=== PATIENT | male | born 1940 | race Caucasian/White ===

== ENCOUNTER → 2017-06-14 | Outpatient (CLI) | payer OTHER, MEDICAID ==
[~2017-06-14] MED LIST: CATHETER FLUSH 10 ML SYR IV PRN; IOHEXOL 350 MG/ML 100 ML (OMNIPAQUE 350) VIAL IV ONE; NS 100 ML (IVPB) BAG IV ONE
--- NOTE | 2017-06-14 16:11 | Diagnostic Imaging Report ---
PROCEDURE: CT chest with contrast only. TECHNIQUE: Multiple contiguous axial images were obtained through the chest after administration of intravenous contrast. INDICATION: Pancreatic cancer. 75 mL of an Omnipaque 350 is administered intravenously. FINDINGS: There are mild to moderate emphysema changes, more prominent in the upper lobes. No significant consolidation, mass or suspicious nodule is seen. Nonspecific groundglass opacity in the lingula is probably atelectasis related. No pleural or pericardial effusion. The heart size is normal. The thoracic aorta is normal in caliber. There is no mediastinal mass or lymphadenopathy. No hilar or axillary lymphadenopathy is seen. Sections in the upper abdomen demonstrate a CBD stent and incompletely visualized mass in the pancreatic head and uncinate process region with dilatation of the pancreatic duct. The mass approximate measurements are 3.6 x 2 cm. There is dilatation of the bile ducts in the liver with pneumobilia. The osseous structures demonstrate degenerative changes and vacuum phenomenon in the mid to lower thoracic spine. IMPRESSION: 1. Emphysema. 2. Pancreatic head and uncinate process mass incompletely visualized with CBD stent in place. There is dilatation of the bile ducts and of the pancreatic duct. 3. No evidence of metastasis in the chest. Dictated by: Dictated on workstation # [id number]
== END ==
LOC: RAD 11:50
PROVIDERS: ATTEND Internal Medicine Hematology & Oncology
DX: J43.9 Emphysema, unspecified (principal); K83.8 Other specified diseases of biliary tract; K86.89 Other specified diseases of pancreas; C25.9 Malignant neoplasm of pancreas, unspecified; Z96.89 Presence of other specified functional implants
CPT/HCPCS: 71260

== ENCOUNTER 2017-06-22 09:30 | Outpatient (CLI) | payer OTHER, MEDICAID ==
[~2017-06-22] VITALS: Ht 172.7 cm; Wt 67.1 kg
[2017-06-22] MEDS ORDERED: BUDE10.2 IH (09:33)
[2017-06-22] MEDS ORDERED: RT-ALBUINH IH (09:33)
[2017-06-22] MEDS ORDERED: ALBU2.5V4 IH (09:33)
[2017-06-22] MEDS ORDERED: MULT-1056 PO (09:33)
[2017-06-23] MEDS ORDERED: ACHD5005 PO (12:56)
== END 2017-06-22 09:48 ==
LOC: PREOP 09:30
PROVIDERS: ATTEND Surgery
DX: Z01.818 Encounter for other preprocedural examination (principal); C25.9 Malignant neoplasm of pancreas, unspecified

== ENCOUNTER 2017-06-23 09:59 | Day surgery (SDC) | payer OTHER, MEDICAID ==
[~2017-06-23] VITALS: Ht 172.7 cm; Wt 67.1 kg
[~2017-06-23 09:59] MED LIST changes: +ALBU2.5V4 IH; +BUDE10.2 IH; -CATHETER FLUSH 10 ML SYR IV PRN; -IOHEXOL 350 MG/ML 100 ML (OMNIPAQUE 350) VIAL IV ONE; +MULT-1056 PO; -NS 100 ML (IVPB) BAG IV ONE; +RT-ALBUINH IH
--- OUTSIDE RECORDS SUMMARY | 2017-06-23 10:06 | XMS REPORT ---
Author Author MOY ZAYAS [facility] Address [address] [facility] [address] [place], [place] [id number] Care Team Providers Care Database Programmer Analyst Name Role Phone MOY ZAYAS PCP Unavailable Allergies and Adverse Reactions Name Reaction Notes NO KNOWN DRUG ALLERGIES Plan of Treatment Not available. Medications Active Name Start Date Estimated Completion Date SIG Comments ProAir HFA 90 mcg/actuation inhalation HFA aerosol inhaler 03/01/2014 inhale 2 puffs by inhalation route every 6 hours albuterol sulfate 2.5 mg /3 mL (0.083 %) inhalation solution for nebulization 03/29/2014 USE 1 VIAL IN MACHINE EVERY 4 HOURS -LIMIT OF 6 DOSES PER 24 HRS. Symbicort 160-4.5 mcg/actuation inhalation HFA aerosol inhaler 07/02/2014 USE 2 PUFFS TWICE A DAY -THANK YOU. ProAir HFA 90 mcg/actuation inhalation HFA aerosol inhaler 03/05/2015 USE 2 PUFFS EVERY 4 HOURS NEEDED FOR WHEEZING -THANK YOU. albuterol sulfate 2.5 mg /3 mL (0.083 %) inhalation solution for nebulization 04/29/2015 USE 1 VIAL IN MACHINE EVERY 4 HOURS -LIMIT OF 6 DOSES PER 24 HRS. ProAir HFA 90 mcg/actuation inhalation HFA aerosol inhaler 06/30/2015 USE 2 PUFFS EVERY 4 HOURS NEEDED FOR WHEEZING -THANK YOU. albuterol sulfate 2.5 mg /3 mL (0.083 %) inhalation solution for nebulization 08/28/2015 USE 1 VIAL IN MACHINE EVERY 4 HOURS -LIMIT OF 6 DOSES PER 24 HRS. Name Start Date Expiration Date SIG Comments triamcinolone acetonide 0.1 % topical cream 08/08/2009 12/06/2009 apply a thin film to the affected skin areas by topical route 2 times per day for 60 days prednisone 20 mg oral tablet 12/03/2009 12/14/2009 4 daily x 2 days, 3 x 3 days , 2x3 days, 1x3 days ALBUTEROL 0.083% NEB 0.083 milliliter 03/04/2010 05/03/2010 1Q6H FOR 60 DAYS - USE ONE VIAL IN NEBULIZER EVERY 6 HOURS FOR 60 DAYS Cipro 500 mg oral tablet 11/18/2010 12/03/2010 take 1 tablet (500 mg) by oral route 2 times per day for 15 days albuterol sulfate 2.5 mg /3 mL (0.083 %) inhalation solution for nebulization 08/03/2011 08/23/2011 USE 1 VIAL IN MACHINE EVERY 4 HOURS -LIMIT OF 6 DOSES PER 24 HRS. albuterol sulfate 2.5 mg /3 mL (0.083 %) inhalation solution for nebulization 04/06/2012 04/26/2012 USE 1 VIAL IN MACHINE EVERY 4 HOURS -LIMIT OF 6 DOSES PER 24 HRS. Cipro 500 mg oral tablet 04/12/2012 04/27/2012 take 1 tablet (500 mg) by oral route 2 times per day for 15 days prednisone 20 mg oral tablet 04/12/2012 04/20/2012 4X2 days 3X2 days 2X2 days 1X2 Days Phenergan-Codeine 6.25-10 mg/5 mL oral syrup 11/08/2012 take 5 milliliters by oral route 4 times a day Cipro 500 mg oral tablet 11/08/2012 take 1 tablet (500 mg) by oral route 2 times per day Vermox Oral po 100mg 04/18/2013 Take 1 tablet by oral route as directed Levaquin 500 mg oral tablet 09/20/2013 09/30/2013 take 1 tablet (500 mg) by oral route once daily for 10 days Symbicort 160-4.5 mcg/actuation inhalation HFA aerosol inhaler 12/25/20132013 USE 2 PUFFS TWICE A DAY -THANK YOU. Valtrex 1 gram oral tablet 03/07/2014 03/14/2014 take 1 tablet (1,000 mg) by oral route 3 times per day for 7 days Cipro 500 mg oral tablet 04/08/2015 04/18/2015 take 1 tablet (500 mg) by oral route 2 times per day for 10 days prednisone 20 mg oral tablet 04/08/2015 04/16/2015 4x2 days 3x2 days 2x2 days 1x2 days Discontinued Name Start Date Discontinued Date SIG Comments Phenergan-Codeine 6.25-10 mg/5 mL oral syrup 11/18/2010 04/12/2012 take 5 milliliters by oral route 4 times a day Vermox 100mg tabs 04/18/2013 04/18/2013 one po now repeat in 2 weeks and 4 weeks deleted Problem List Description Status Onset breathing problems Active Chronic Obstructive Pulmonary Disease Active Squamous cell skin cancer Active Penis June 28 Pulmonary emphysema, unspecified emphysema type Active 08/30/2015 Hypoxemia requiring supplemental oxygen Active 08/30/2015 Vital Signs Date Time BP-Sys(mm[Hg] BP-Kadi(mm[Hg]) HR(bpm) RR(rpm) Temp WT HT HC BMI BSA BMI Percentile O2 Sat(%) 08/29/2015 11:39:00 AM 110 mmHg 65 mmHg 54 bpm 16 rpm 98.2 F 173 lbs 70 in 24.82 kg/m2 1.97 m2 93 % 08/18/2015 10:35:00 AM 128 mmHg 65 mmHg 90 bpm 18 rpm 98.7 F 174 lbs 71 in 24.2678 kg/m 1.9884 m 86 % 04/08/2015 10:55:00 AM 110 mmHg 70 mmHg 60 bpm 16 rpm 98.4 F 172 lbs 71 in 23.99 kg/m2 1.98 m2 96 % 03/07/2014 10:49:00 AM 150 mmHg 72 mmHg 76 bpm 22 rpm 96.3 F 173 lbs 71 in 24.1284 kg/m 1.9827 m 98 % 09/20/2013 10:42:00 AM 134 mmHg 74 mmHg 104 bpm 24 rpm 99.9 F 177 lbs 71 in 24.69 kg/m2 2.01 m2 85 % 11/06/2012 2:59:00 PM 130 mmHg 64 mmHg 70 bpm 20 rpm 96.1 F 175 lbs 71 in 24.4073 kg/m 1.9941 m 95 % 04/12/2012 10:21:00 AM 130 mmHg 68 mmHg 76 bpm 20 rpm 97.1 F 161 lbs 71 in 22.45 kg/m2 1.91 m2 89 % 11/10/2011 9:28:00 AM 112 mmHg 68 mmHg 60 bpm 167 lbs 71 in 23.2915 kg/m 1.948 m 88 % 10/18/2011 1:31:00 PM 116 mmHg 66 mmHg 68 bpm 157 lbs 71 in 21.90 kg/m2 1.89 m2 93 % 11/18/2010 10:15:00 AM 116 mmHg 64 mmHg 55 bpm 157 lbs 90 % 08/13/2010 9:40:00 AM 118 mmHg 64 mmHg 50 bpm 157 lbs 95 % 04/29/2010 10:10:00 AM 112 mmHg 64 mmHg 54 bpm 148.375 lbs 94 % 12/02/2009 9:53:00 AM 112 mmHg 74 mmHg 62 bpm 155 lbs 92 % 09/23/2009 10:37:00 AM 118 mmHg 70 mmHg 58 bpm 155 lbs 92 % 07/08/2009 9:05:00 AM 112 mmHg 62 mmHg 70 bpm 147 lbs 85 % Social History Name Description Comments Tobacco Former smoker denies alcohol use 8th grade Quit Alcohol Active but no formal exercise Uses seatbelts History of Procedures Date Ordered Description Order Status 04/12/2012 12:00 AM THER/PROPH/DIAG INJ SC/IM Reviewed 04/12/2012 12:00 AM Decadron, Per 1 Mg [facility]# [id number] Reviewed 04/12/2012 12:00 AM Depo-Medrol, Per 80 Mg [facility]#9790-8504-46 Reviewed 04/12/2012 12:00 AM ROUTINE VENIPUNCTURE Reviewed 04/12/2012 12:00 AM COMPLETE CBC W/AUTO DIFF WBC Reviewed 04/12/2012 12:00 AM COMPREHEN METABOLIC PANEL Reviewed 04/12/2012 12:00 AM LIPID PANEL Reviewed 04/12/2012 12:00 AM ASSAY OF PSA TOTAL Reviewed 09/23/2009 12:00 AM Decadron Inj.6mg-([facility]) [facility] #[id number] Reviewed 09/23/2009 12:00 AM Depo-Medrol 120 Mg Im/[facility] [id number] Reviewed 11/06/2012 12:00 AM THER/PROPH/DIAG INJ SC/IM Reviewed 11/06/2012 12:00 AM Decadron, Per 1 Mg [facility]# [address]-81 Reviewed 11/06/2012 12:00 AM Depo-Medrol, Per 80 Mg [facility]#0629-3257-40 Reviewed 09/20/2013 12:00 AM THER/PROPH/DIAG INJ SC/IM Reviewed 09/20/2013 12:00 AM Decadron, Per 12 Mg [facility]# [address]-26 Reviewed 09/20/2013 12:00 AM Rocephin 1 gram [facility]#8962-2593-78 Reviewed 04/29/2010 12:00 AM THER/PROPH/DIAG INJ SC/IM Reviewed 04/29/2010 12:00 AM Decadron Inj.6mg-([facility]) [facility] #[id number] Reviewed 04/29/2010 12:00 AM Depo-Medrol 120 Mg Im/[facility] [id number] Reviewed 07/08/2009 12:00 AM Decadron Inj.1mg-([facility]ed With [facility]) [facility] #[id number] Reviewed 07/08/2009 12:00 AM Depo-Medrol 80 Mg Im/[facility] [id number] Reviewed Results Summary Data and Description Results 04/12/2012 3:49 PM GLUCOSE 102.0 mg/dLSODIUM 141.0 mmol/LPOTASSIUM 4.60 mmol/ LCHLORIDE 102.0 mmol/LCO2 29.0 mmol/LBUN 13.0 mg/dLCREATININE 0.80 mg/dLSGOT/ AST 16.0 IU/LSGPT/ALT 18.0 IU/LALK PHOS 55.0 IU/LTOTAL PROTEIN 6.70 g/dLALBUMIN 4.0 g/dLTOTAL BILI 0.60 mg/dLCALCIUM 9.0 mg/dLeGFR 60 TRIGLYCERIDES 95.0 mg/ dLCHOLESTEROL 181.0 mg/dLHDL 62.0 mg/dLLDL (CALC) 100.0 mg/dLPSA TOTAL 1.990 ng/ mLWBC 4.9 RBC 4.85 HGB 14.60 g/dLHCT 44.50 %MCV 92.0 fLMCH 30.10 pgMCHC 32.80 g/ dLRDW CV 14.0 %MPV 11.40 fLPLT 192 %NEUT 48.40 %%LYMP 30.50 %%MONO 15.60 %%EOS 4.90 %%BASO 0.60 %#NEUT 2.36 #LYMP 1.49 #MONO 0.76 #EOS 0.24 #BASO 0.03 EOS 4.0 % History Of Immunizations Name Date Admin [facility] Code Trade Name Lot# Route Inj Vis Given Vis Pub CVX Influenza 07/16/2013 Not Entered NE Not Entered Not Entered Not Entered 06/27/2015 06/27/2015 141 History of Past Illness Name Date of Onset Comments Bronchitis, Acute Jul 08 2009 9:06AM Chronic Obstructive Pulmonary Disease With Acute Exacerbation Jul 08 2009 9: 06AM Dyspnea Jul 08 2009 9:06AM breathing problems Bronchitis, Chronic Sep 23 2009 10:39AM Chronic Obstructive Pulmonary Disease With Acute Exacerbation Sep 23 2009 10: 39AM Cough Sep 23 2009 10:39AM Emphysema Sep 23 2009 10:39AM Chronic Obstructive Pulmonary Disease Cough Dec 02 2009 9:55AM Bronchitis, Chronic Dec 02 2009 9:55AM Chronic Obstructive Pulmonary Disease Dec 02 2009 9:55AM Squamous cell skin cancer Penis June 2012 Cough Apr 29 2010 10:11AM Sinusitis, Acute Apr 29 2010 10:11AM Seasonal Allergies Apr 29 2010 10:11AM Chronic Obstructive Pulmonary Disease Apr 29 2010 10:11AM Bronchitis, Chronic Aug 13 2010 9:41AM Pulmonary emphysema, unspecified emphysema type 08/30/2015 Hypoxemia requiring supplemental oxygen 08/30/2015 Cough Nov 18 2010 10:15AM Chronic Obstructive Pulmonary Disease Nov 18 2010 10:15AM Chronic Obstructive Pulmonary Disease Oct 18 2011 1:33PM Chronic Obstructive Pulmonary Disease Nov 10 2011 9:29AM Cough Apr 12 2012 10:23AM Chronic Obstructive Bronchitis Apr 12 2012 10:23AM Shortness Of Breath Apr 12 2012 10:23AM Emphysema Apr 12 2012 10:23AM Chronic Obstructive Pulmonary Disease Apr 12 2012 10:23AM Prostate screening Apr 12 2012 10:23AM Cough Nov 06 2012 3:00PM Bronchitis, Acute Nov 06 2012 3:00PM Chronic Obstructive Pulmonary Disease, Exacerbation Nov 06 2012 3:00PM Bronchitis, Acute Sep 20 2013 10:42AM Chronic Obstructive Pulmonary Disease, Exacerbation Sep 20 2013 10:42AM Herpes Zoster Mar 07 2014 10:49AM Bronchitis, Acute Apr 08 2015 10:56AM Respiratory System And Chest Symptoms Apr 08 2015 10:56AM Chronic Obstructive Pulmonary Disease Apr 08 2015 10:56AM Pulmonary emphysema, unspecified emphysema type Aug 29 2015 11:41AM Moderate Chronic Hypoxemia requiring supplemental oxygen Stable Aug 29 2015 11 :41AM Moderate Chronic Respiratory System And Chest Symptoms Worsening Aug 18 2015 10:35AM Moderate COPD (chronic obstructive pulmonary disease) with acute bronchitis Aug 18 2015 10:35AM Moderate Chronic Hypoxemia requiring supplemental oxygen Worsening Aug 18 2015 10:35AM Payers Insurance Name Company Name Plan Name Plan Number Policy Number Policy Group Number Start Date Humana Hum[employer] Claims Center [id number] Sunday, 2010 [place] [employer] [place] Prog [id number] N/A Ad[employer] Vista [employer] [id number] N/A Medicare Part A Medicare Part A [id number] N/A History of Encounters Visit Date Visit Type Provider 08/29/2015 Office visit MOY ARRIETA 08/18/2015 Office visit MOY ARRIETA 04/08/2015 Office visit MOY ARRIETA 03/07/2014 Office visit MOY ARRIETA 09/20/2013 Office visit MOY ARRIETA 11/06/2012 Office visit MOY ARRIETA 04/12/2012 Office visit MOY ARRIETA 11/10/2011 Office visit MOY ARRIETA 10/18/2011 Office visit MOY ARRIETA 11/18/2010 Office visit Moy Zayas PA-C 08/13/2010 Office visit Moy Zayas PA-C 04/29/2010 Office visit Moy ARRIETA-C 12/02/2009 Office visit Moy ARRIETA-C 09/23/2009 Office visit Moy Zayas PA-C 07/08/2009 Office visit Moy Zayas PA-C 03/04/2009 Office visit MOY ARRIETA
--- OUTSIDE RECORDS SUMMARY | 2017-06-23 10:07 | XMS REPORT ---
Author Author MOY ZAYAS [facility] Address [address] [facility] [address] [place], [place] [id number] Care Team Providers Care Psychology Intern Name Role Phone MOY ZAYAS PCP MOY ZAYAS PreferredProvider Allergies and Adverse Reactions Name Reaction Notes NO KNOWN DRUG ALLERGIES Plan of Treatment Planned Activity Comments Planned Date Planned Time Plan/Goal .Lipid Panel 09/06/2016 12:00 AM Medications Active Name Start Date Estimated Completion [...] mL (0.083 %) inhalation solution for nebulization 09/29/2015 USE 1 VIAL IN MACHINE EVERY 4 HOURS -LIMIT OF 6 DOSES PER 24 HRS. Symbicort 160-4.5 mcg/actuation inhalation HFA aerosol inhaler 12/01/2015 USE 2 PUFFS TWICE A DAY -THANK YOU. albuterol sulfate 2.5 mg /3 mL (0.083 %) inhalation solution for nebulization 03/29/2016 USE 1 VIAL IN MACHINE EVERY 4 HOURS -LIMIT OF 6 DOSES PER 24 HRS. Symbicort 160-4.5 mcg/actuation inhalation HFA aerosol inhaler 04/29/2016 USE 2 PUFFS TWICE A DAY -THANK YOU. Symbicort 160-4.5 mcg/actuation inhalation HFA aerosol inhaler 06/29/2016 USE 2 PUFFS TWICE A DAY -THANK YOU. Ventolin Hfa Inh 08/27/2016 USE 2 PUFFS EVERY 4 HOURS NEEDED FOR WHEEZING -THANK YOU. Cipro 500 mg oral tablet 05/03/2017 take 1 tablet (500 mg) by oral route 2 times per day Name Start Date Expiration Date SIG Comments [...] oral route once daily for 10 days Valtrex 1 gram oral tablet 03/07/2014 03/14/2014 take 1 tablet (1,000 mg) by oral route 3 times per day for 7 days Cipro 500 mg oral tablet 04/08/2015 04/18/2015 take 1 tablet (500 mg) by oral route 2 times per day for 10 days prednisone 20 mg oral tablet 04/08/2015 04/16/2015 4x2 days 3x2 days 2x2 days 1x2 days Symbicort 160-4.5 mcg/actuation inhalation HFA aerosol inhaler 12/29/20162016 USE 2 PUFFS TWICE A DAY -THANK YOU. Ventolin Hfa Inh 03/30/2017 03/30/2017 USE 2 PUFFS EVERY 4 HOURS NEEDED FOR WHEEZING -THANK YOU. prednisone 20 mg oral tablet 05/03/2017 05/11/2017 4x2 days 3x2 days 2x2 days 1x2 days Discontinued Name Start Date Discontinued Date SIG Comments Phenergan-Codeine 6.25-10 mg/5 mL oral syrup 11/18/2010 04/12/2012 take 5 milliliters by oral route 4 times a day Vermox 100mg tabs 04/18/2013 04/18/2013 one po now repeat in 2 weeks and 4 weeks deleted ProAir HFA 90 mcg/actuation inhalation HFA aerosol inhaler 06/30/20152016 USE 2 PUFFS EVERY 4 HOURS NEEDED FOR WHEEZING -THANK YOU. Ventolin HFA 108 (90 Base)MCG/ACT Inhalation Aerosol Solution 02/09/20162016 USE 2 PUFFS EVERY 4 HOURS NEEDED FOR WHEEZING -THANK YOU. Problem List Description Status Onset breathing problems Active Chronic Obstructive Pulmonary Disease Active Squamous cell skin cancer Active Penis June 28 Pulmonary emphysema, unspecified emphysema type Active 08/30/2015 Hypoxemia requiring supplemental oxygen Active 08/30/2015 Vital Signs Date Time BP-Sys(mm[Hg] BP-Kadi(mm[Hg]) HR(bpm) RR(rpm) Temp WT HT HC BMI BSA BMI Percentile O2 Sat(%) 05/23/2017 10:19:00 AM 120 mmHg 64 mmHg 94 bpm 16 rpm 97.8 F 156 lbs 70 in 22.38 kg/m2 1.87 m2 92 % 05/03/2017 2:18:00 PM 112 mmHg 64 mmHg 66 bpm 16 rpm 98.2 F 164 lbs 70 in 23.5313 kg/m 1.9168 m 94 % 09/06/2016 4:06:00 PM 135 mmHg 62 mmHg 78 bpm 18 rpm 97.4 F 182 lbs 70 in 26.11 kg/m2 2.02 m2 98 % 08/29/2015 11:39:00 AM 110 mmHg 65 mmHg 54 bpm 16 rpm 98.2 F 173 lbs 70 in 24.8227 kg/m 1.9687 m 93 % 08/18/2015 10:35:00 AM 128 mmHg 65 mmHg 90 bpm 18 rpm 98.7 F 174 lbs 71 in 24.27 kg/m2 1.99 m2 86 % 04/08/2015 10:55:00 AM 110 mmHg 70 mmHg 60 bpm 16 rpm 98.4 F 172 lbs 71 in 23.9889 kg/m 1.9769 m 96 % 03/07/2014 10:49:00 AM 150 mmHg 72 mmHg 76 bpm 22 rpm 96.3 F 173 lbs 71 in 24.13 kg/m2 1.98 m2 98 % 09/20/2013 10:42:00 AM 134 mmHg 74 mmHg 104 bpm 24 rpm 99.9 F 177 lbs 71 in 24.6862 kg/m 2.0055 m 85 % 11/06/2012 2:59:00 PM 130 mmHg 64 mmHg 70 bpm 20 rpm 96.1 F 175 lbs 71 in 24.41 kg/m2 1.99 m2 95 % 04/12/2012 10:21:00 AM 130 mmHg 68 mmHg 76 bpm 20 rpm 97.1 F 161 lbs 71 in 22.4547 kg/m 1.9127 m 89 % 11/10/2011 9:28:00 AM 112 mmHg 68 mmHg 60 bpm 167 lbs 71 in 23.29 kg/m2 1.95 m2 88 % 10/18/2011 1:31:00 PM 116 mmHg 66 mmHg 68 bpm 157 lbs 71 in 21.8968 kg/m 1.8888 m 93 % 11/18/2010 10:15:00 AM 116 mmHg [...] of Procedures Date Ordered Description Order Status 08/31/2015 12:00 AM Decadron, Per 1 Mg [facility]# [address]-81 Reviewed 09/06/2016 12:00 AM COMPLETE CBC W/AUTO DIFF WBC Returned 09/06/2016 12:00 AM COMPREHEN METABOLIC PANEL Returned 09/06/2016 12:00 AM Prostate Cancer Screening Returned 04/12/2012 12:00 AM THER/PROPH/DIAG INJ SC/IM Reviewed 04/12/2012 12:00 AM Decadron, Per 1 Mg [facility]# [address]-51 Reviewed 04/12/2012 12:00 AM Depo-Medrol, Per 80 Mg [facility]#9554-0668-82 Reviewed 04/12/2012 12:00 AM ROUTINE VENIPUNCTURE Reviewed 04/12/2012 12:00 AM COMPLETE CBC W/AUTO DIFF WBC Reviewed 04/12/2012 12:00 AM COMPREHEN METABOLIC PANEL Reviewed 04/12/2012 12:00 AM LIPID PANEL Reviewed 04/12/2012 12:00 AM ASSAY OF PSA TOTAL Reviewed 05/23/2017 12:00 AM ECHO EXAM OF ABDOMEN Returned 09/23/2009 12:00 AM Decadron Inj.6mg-([facility]) [facility] #[id number] Reviewed 09/23/2009 12:00 AM Depo-Medrol 120 Mg Im/[facility] [id number] Reviewed 11/06/2012 12:00 AM THER/PROPH/DIAG INJ SC/IM Reviewed 11/06/2012 12:00 AM Decadron, Per 1 Mg [facility]# [address]-00 Reviewed 11/06/2012 12:00 AM Depo-Medrol, Per 80 Mg [facility]#9503-2055-48 Reviewed 09/20/2013 12:00 AM THER/PROPH/DIAG INJ SC/IM Reviewed 09/20/2013 12:00 AM Decadron, Per 12 Mg [facility]# [address]-15 Reviewed 09/20/2013 12:00 AM Rocephin 1 gram [facility]#0571-4458-56 Reviewed 04/29/2010 12:00 AM THER/PROPH/DIAG INJ SC/IM Reviewed 04/29/2010 12:00 AM Decadron Inj.6mg-([facility]) [facility] #[id number] Reviewed 04/29/2010 12:00 AM Depo-Medrol 120 Mg Im/[facility] [id number] Reviewed 07/08/2009 12:00 AM Decadron Inj.1mg-([facility]) [facility] #[id number] Reviewed 07/08/2009 12:00 AM Depo-Medrol 80 Mg Im/[facility] [id number] Reviewed Results Summary Date and Description Results 04/12/2012 3:49 PM GLUCOSE 102.0 mg/dLSODIUM 141.0 mmol/LPOTASSIUM 4.60 mmol/ LCHLORIDE 102.0 mmol/LCO2 29.0 mmol/LBUN 13.0 mg/dLCREATININE 0.80 mg/dLSGOT/ AST 16.0 IU/LSGPT/ALT 18.0 IU/LALK PHOS 55.0 IU/LTOTAL PROTEIN 6.70 g/dLALBUMIN 4.0 g/dLTOTAL BILI 0.60 mg/dLCALCIUM 9.0 mg/dLAGE 71 GFR NonAA 96 GFR AA 116 eGFR 60 eGFR AA* 60 TRIGLYCERIDES 95.0 mg/dLCHOLESTEROL 181.0 mg/dLHDL 62.0 mg/ dLTOT CHOL/HDL 2.9 LDL (CALC) 100.0 mg/dLPSA TOTAL 1.990 ng/mL History Of Immunizations Name Date Admin Mfg Name Mfg Code Trade Name Lot# Route Inj Vis Given Vis Pub CVX Influenza 07/16/2013 Not Entered NE Not Entered Not Entered Not Entered 06/27/2016 06/27/2016 141 History of Past Illness Name Date [...] supplemental oxygen Worsening Aug 18 2015 10:35AM Hyperlipemia Sep 06 2016 10:11AM Prostate cancer screening Sep 06 2016 10:11AM Fatigue Sep 06 2016 10:11AM COPD exacerbation Sep 06 2016 4:06PM Medication management Sep 06 2016 4:06PM Chest congestion May 03 2017 2:19PM Chronic obstructive pulmonary disease with acute lower respiratory infection May 03 2017 2:19PM Acute bronchitis, unspecified May 03 2017 2:19PM Second hand smoke exposure May 03 2017 2:19PM Jaundice May 23 2017 10:14AM Jaundice May 23 2017 10:19AM Payers Insurance Name Company Name Plan Name Plan Number Policy Number Policy Group Number Start Date Humana Humana Claims Center [id number] Sunday, 2010 [place] [employer] Assistance Program [place] Pro[place] [id number] N/A Medicare Part A Medicare - Lab/Xray [id number] N/A [place] [employer] Pro[employer] - [employer] [place] [employer] Pro[employer] - RHC [id number] N/A Advantra Pinson Ad[employer]ra Pinson [id number] N/A Medicare Part A Medicare Part A [id number] N/A History of Encounters Visit Date Visit Type Provider 05/23/2017 Office visit MOY ARRIETA 05/03/2017 Office visit MOY ARRIETA 09/06/2016 Office visit MOY ARRIETA 08/29/2015 Office visit MOY ARRIETA 08/18/2015 Office visit MOY ARRIETA 04/08/2015 Office visit MOY ARRIETA 03/07/2014 Office visit MOY ARRIETA 09/20/2013 Office visit MOY ARRIETA 11/06/2012 Office visit MOY ARRIETA 04/12/2012 Office visit MOY ARRIETA 11/10/2011 Office visit MOY ARRIETA 10/18/2011 Office visit MOY ARRIETA 11/18/2010 Office visit Moy Zayas PA-C 08/13/2010 Office visit Moy ARRIETA-C 04/29/2010 Office visit Moy ARRIETA-C 12/02/2009 Office visit Moy ARRIETA-C 09/23/2009 Office visit Moy ARRIETA-C 07/08/2009 Office visit Moy Zayas PA-C 03/04/2009 Office visit MOY ARRIETA
--- OUTSIDE RECORDS SUMMARY | 2017-06-23 10:07 | XMS REPORT ---
Author Author MOY ZAYAS [facility] Address [address] [facility] [address] [place], [place] [id number] Care Team Providers Care Mobile Crane Operator Name Role Phone MOY ZAYAS PCP Unavailable MOY ZAYAS PreferredProvider Unavailable Allergies and Adverse Reactions Name Reaction Notes NO KNOWN DRUG ALLERGIES Plan of Treatment Planned Activity Comments Planned Date Planned Time Plan/Goal CMP 09/06/2016 12:00 AM .Lipid Panel 09/06/2016 12:00 AM Medications Active [...] HC BMI BSA BMI Percentile O2 Sat(%) 05/03/2017 2:18:00 PM 112 mmHg 64 mmHg 66 bpm 16 rpm 98.2 F 164 lbs 70 in 23.53 kg/m2 1.92 m2 94 % 09/06/2016 4:06:00 PM 135 mmHg 62 mmHg 78 bpm 18 rpm 97.4 F 182 lbs 70 in 26.114 kg/m 2.0192 m 98 % 08/29/2015 11:39:00 AM 110 mmHg [...] 08/31/2015 12:00 AM Decadron, Per 1 Mg [facility]# [address]-41 Reviewed 09/06/2016 12:00 AM COMPLETE CBC W/AUTO DIFF WBC Returned 04/12/2012 12:00 AM THER/PROPH/DIAG INJ SC/IM Reviewed 04/12/2012 12:00 AM Decadron, Per 1 Mg [facility]# [address]-55 Reviewed 04/12/2012 12:00 AM Depo-Medrol, Per 80 Mg [facility]#8953-7137-18 Reviewed 04/12/2012 12:00 AM ROUTINE VENIPUNCTURE Reviewed 04/12/2012 12:00 AM COMPLETE CBC W/AUTO DIFF WBC Reviewed 04/12/2012 12:00 AM COMPREHEN METABOLIC PANEL Reviewed 04/12/2012 12:00 AM LIPID PANEL Reviewed 04/12/2012 12:00 AM ASSAY OF PSA TOTAL Reviewed 09/23/2009 12:00 AM Decadron Inj.6mg-([facility]) [facility] #[id number] Reviewed 09/23/2009 12:00 AM Depo-Medrol 120 Mg Im/[facility] [id number] Reviewed 11/06/2012 12:00 AM THER/PROPH/DIAG INJ SC/IM Reviewed 11/06/2012 12:00 AM Decadron, Per 1 Mg [facility]# [address]-67 Reviewed 11/06/2012 12:00 AM Depo-Medrol, Per 80 Mg [facility]#8579-4005-58 Reviewed 09/20/2013 12:00 AM THER/PROPH/DIAG INJ SC/IM Reviewed 09/20/2013 12:00 AM Decadron, Per 12 Mg [facility]# [address]-47 Reviewed 09/20/2013 12:00 AM Rocephin 1 gram [facility]#0296-1232-03 Reviewed 04/29/2010 12:00 AM THER/PROPH/DIAG INJ SC/IM Reviewed 04/29/2010 12:00 AM Decadron Inj.6mg-([facility]) [facility] #[id number] Reviewed 04/29/2010 12:00 AM Depo-Medrol 120 Mg Im/[facility] 0009-659525 Reviewed 07/08/2009 12:00 AM Decadron Inj.1mg-([facility]) [facility] #[id number] Reviewed 07/08/2009 12:00 AM Depo-Medrol 80 Mg Im/[facility] 0009-681086 Reviewed Results Summary Date and Description Results [...] hand smoke exposure May 03 2017 2:19PM Payers Insurance Name Company Name Plan Name Plan Number Policy Number Policy Group Number Start Date [employer] Humana Claims Center [id number] Sunday, 2010 [place] Medical Assistance Program [place] Medical Assistance Prog [id number] N/A Medicare Part A Medicare - Lab/Xray [id number] N/A [place] Hog Confinement System Manager Prog - RHC [place] Hog Confinement System Manager Prog - RHC [id number] N/A Advantra Pax Advantra Pax [id number] N/A Medicare Part A Medicare Part A [id number] N/A History of Encounters Visit Date Visit Type Provider 05/03/2017 Office visit MOY ARRIETA 09/06/2016 Office visit MOY ARRIETA 08/29/2015 Office visit MOY ARRIETA 08/18/2015 Office visit MOY ARRIETA 04/08/2015 Office visit MOY ARRIETA 03/07/2014 Office visit MOY ARRIETA 09/20/2013 Office visit MOY ARRIETA 11/06/2012 Office visit MOY ARRIETA 04/12/2012 Office visit MOY ARRIETA 11/10/2011 Office visit MOY ARRIETA 10/18/2011 Office visit MOY ARRIETA 11/18/2010 Office visit Moy ARRIETA-C 08/13/2010 Office visit Moy ARRIETA-C 04/29/2010 Office visit Moy ARRIETA-C 12/02/2009 Office visit Moy Zayas PA-C 09/23/2009 Office visit Moy Zayas PA-C 07/08/2009 Office visit Moy Zayas PA-C 03/04/2009 Office visit MOY ARRIETA
--- OUTSIDE RECORDS SUMMARY | 2017-06-23 10:08 | XMS REPORT ---
Author Author MOY ZAYAS [facility] Address [address] [place], [place] [address] Care Team Providers Care Anode Adjuster Name Role Phone MOY ZAYAS PCP Unavailable [...] -THANK YOU. Cipro 500 mg oral tablet 04/08/2015 04/18/2015 take 1 tablet (500 mg) by oral route 2 times per day for 10 days prednisone 20 mg oral tablet 04/08/2015 04/16/2015 4x2 days 3x2 days 2x2 days 1x2 days Name Start Date Expiration Date SIG Comments [...] 3 times per day for 7 days Discontinued Name Start Date Discontinued Date [...] cell skin cancer Active Penis June 28 Vital Signs Date Time BP-Sys(mm[Hg] BP-Kadi(mm[Hg]) HR(bpm) RR(rpm) Temp WT HT HC BMI BSA BMI Percentile O2 Sat(%) 04/08/2015 10:55:00 AM 110 mmHg 70 mmHg [...] 04/12/2012 12:00 AM Decadron, Per 1 Mg [facility]# [address]-93 Reviewed 04/12/2012 12:00 AM Depo-Medrol, Per 80 Mg [facility]#1385-8491-68 Reviewed 04/12/2012 12:00 AM ROUTINE VENIPUNCTURE Reviewed 04/12/2012 12:00 AM COMPLETE CBC W/AUTO DIFF WBC Reviewed 04/12/2012 12:00 AM COMPREHEN METABOLIC PANEL Reviewed 04/12/2012 12:00 AM LIPID PANEL Reviewed 04/12/2012 12:00 AM ASSAY OF PSA TOTAL Reviewed 09/23/2009 12:00 AM Decadron Inj.6mg-([facility]) [facility] #[id number] Reviewed 09/23/2009 12:00 AM Depo-Medrol 120 Mg Im/[facility] 0009-350855 Reviewed 11/06/2012 12:00 AM THER/PROPH/DIAG INJ SC/IM Reviewed 11/06/2012 12:00 AM Decadron, Per 1 Mg [facility]# [address]-06 Reviewed 11/06/2012 12:00 AM Depo-Medrol, Per 80 Mg [facility]#4466-1783-32 Reviewed 09/20/2013 12:00 AM THER/PROPH/DIAG INJ SC/IM Reviewed 09/20/2013 12:00 AM Decadron, Per 12 Mg [facility]# [address]-43 Reviewed 09/20/2013 12:00 AM Rocephin 1 gram [facility]#7169-0106-64 Reviewed 04/29/2010 12:00 AM THER/PROPH/DIAG INJ SC/IM Reviewed 04/29/2010 12:00 AM Decadron Inj.6mg-([facility]) [facility] #[id number] Reviewed 04/29/2010 12:00 AM Depo-Medrol 120 Mg Im/[facility] [id number] Reviewed 07/08/2009 12:00 AM Decadron Inj.1mg-([facility]) [facility] #[id number] Reviewed 07/08/2009 12:00 AM Depo-Medrol 80 Mg Im/[facility] 0009-486326 Reviewed Results Summary Data and Description Results [...] % History Of Immunizations Name Date Admin Mfg Name Mfg Code Trade Name Lot# Route Inj Vis Given Vis Pub CVX Influenza 07/16/2013 Not Entered NE Not Entered Not Entered Not Entered 06/27/2014 06/27/2014 141 History of Past Illness Name Date [...] 10:11AM Bronchitis, Chronic Aug 13 2010 9:41AM Cough Nov 18 2010 10:15AM Chronic Obstructive [...] Obstructive Pulmonary Disease Apr 08 2015 10:56AM Payers Insurance Name Company Name Plan Name Plan Number Policy Number Policy Group Number Start Date [facility] Humana Claims [place] [id number] Sunday, 2010 Advantra Canvas Advantra Canvas [id number] N/A Medicare Part A Medicare Part A [id number] N/A History of Encounters Visit Date Visit Type Provider 04/08/2015 Office visit MOY ARRIETA 03/07/2014 Office visit MOY ARRIETA 09/20/2013 Office visit MOY ARRIETA 11/06/2012 Office visit MOY ARRIETA 04/12/2012 Office visit MOY ARRIETA 11/10/2011 Office visit MOY ARRIETA 10/18/2011 Office visit MOY ARRIETA 11/18/2010 Office visit Moy JEWELLC 08/13/2010 Office visit Moy Zayas PA-C 04/29/2010 Office visit Moy Zayas PA-C 12/02/2009 Office visit Moy JEWELLC 09/23/2009 Office visit Moy Zayas PA-C 07/08/2009 Office visit Moy Zayas PA-C 03/04/2009 Office visit MOY ARRIETA
--- OUTSIDE RECORDS SUMMARY | 2017-06-23 10:08 | XMS REPORT ---
Author Author MOY ZAYAS [facility] Address [address] [facility] [address] [place], [place] [address] Care Team Providers Care Casino Gaming Inspector Name Role Phone MOY ZAYAS PCP Unavailable MOY ZAYAS PreferredProvider Unavailable Allergies and Adverse Reactions Name Reaction Notes NO KNOWN DRUG ALLERGIES Plan of Treatment Planned Activity Comments Planned Date Planned Time Plan/Goal CMP 09/06/2016 12:00 AM .Lipid Panel 09/06/2016 12:00 AM US [employer] (SINGLE ORGAN) 05/23/2017 12:00 AM Medications Active Name Start Date [...] 12:00 AM Decadron, Per [address] [facility]# [address]-18 Reviewed 09/06/2016 12:00 AM COMPLETE CBC W/AUTO DIFF WBC Returned 04/12/2012 12:00 AM THER/PROPH/DIAG INJ SC/IM Reviewed 04/12/2012 12:00 AM Decadron, Per [address] [facility]# [address]-42 Reviewed 04/12/2012 12:00 AM Depo-Medrol, Per [address] [facility]#2533-0361-96 Reviewed 04/12/2012 12:00 AM ROUTINE VENIPUNCTURE Reviewed 04/12/2012 12:00 AM COMPLETE CBC W/AUTO DIFF WBC Reviewed 04/12/2012 12:00 AM COMPREHEN METABOLIC PANEL Reviewed 04/12/2012 12:00 AM LIPID PANEL Reviewed 04/12/2012 12:00 AM ASSAY OF PSA TOTAL Reviewed 09/23/2009 12:00 AM Decadron Inj.6mg-([facility]) [facility] #[id number] Reviewed 09/23/2009 12:00 AM Depo-Medrol 120 Mg Im/[facility] 0009-882242 Reviewed 11/06/2012 12:00 AM THER/PROPH/DIAG INJ SC/IM Reviewed 11/06/2012 12:00 AM Decadron, Per [address] [facility]# [address]-41 Reviewed 11/06/2012 12:00 AM Depo-Medrol, Per [address] [facility]#3415-7394-27 Reviewed 09/20/2013 12:00 AM THER/PROPH/DIAG INJ SC/IM Reviewed 09/20/2013 12:00 AM Decadron, Per [address] [facility]# [address]-96 Reviewed 09/20/2013 12:00 AM Rocephin [address] [facility]#8644-2549-67 Reviewed 04/29/2010 12:00 AM THER/PROPH/DIAG INJ SC/IM Reviewed 04/29/2010 12:00 AM Decadron Inj.6mg-([facility]) [facility] #[id number] Reviewed 04/29/2010 12:00 AM Depo-Medrol 120 Mg Im/[facility] 0009-957511 Reviewed 07/08/2009 12:00 AM Decadron Inj.1mg-([facility]) [facility] #[id number] Reviewed 07/08/2009 12:00 AM Depo-Medrol 80 Mg Im/[facility] 0009-710510 Reviewed Results Summary Date and Description Results [...] Disease Apr 29 2010 10:11AM Bronchitis, Chronic Fe2010 9:41AM Pulmonary emphysema, unspecified emphysema type 08/30/2015 [...] 2017 2:19PM Jaundice May 23 2017 10:14AM Payers Insurance Name Company Name Plan Name Plan Number Policy Number Policy Group Number Start Date Humana Humana Claims Center [id number] Sunday, 2010 [place] Medical Assistance Program [place] Medical Assistance Prog [id number] N/A Medicare Part A Medicare - Lab/Xray [id number] N/A [place] Inspector Subassembly Prog - RHC [place] Inspector Subassembly Prog - RHC [id number] N/A Advantra [place] Advant[employer] [place] [id number] N/A Medicare Part A Medicare Part A [id number] N/A History of Encounters Visit Date Visit [...] Moy Zayas PA-C 12/02/2009 Office visit Moy Zayas PA-C 09/23/2009 Office visit Moy Zayas PA-C 07/08/2009 Office visit Moy Zayas PA-C 03/04/2009 Office visit MOY ARRIETA
--- OUTSIDE RECORDS SUMMARY | 2017-06-23 10:09 | XMS REPORT ---
Author Author MOY ZAYAS [facility] Address [address] [facility] [address] [place], [place] [address] Care Team Providers Care Insulation Board Back Tender Name Role Phone MOY ZAYAS PCP Unavailable MOY ZAYAS PreferredProvider Unavailable Allergies and Adverse Reactions Name Reaction Notes NO KNOWN DRUG ALLERGIES Plan of Treatment Planned Activity Comments Planned Date Planned Time Plan/Goal CBC with Differential 09/06/2016 12:00 AM CMP 09/06/2016 12:00 AM .Lipid Panel 09/06/2016 [...] 4 HOURS NEEDED FOR WHEEZING -THANK YOU. Symbicort 160-4.5 mcg/actuation inhalation HFA aerosol inhaler 09/08/201609/08 USE 2 PUFFS TWICE A DAY -THANK YOU. Name Start Date Expiration Date SIG Comments [...] HC BMI BSA BMI Percentile O2 Sat(%) 09/06/2016 4:06:00 PM 135 mmHg 62 mmHg [...] 08/31/2015 12:00 AM Decadron, Per 1 Mg [facility]# [address]-83 Reviewed 04/12/2012 12:00 AM THER/PROPH/DIAG INJ SC/IM Reviewed 04/12/2012 12:00 AM Decadron, Per 1 Mg [facility]# [address]-01 Reviewed 04/12/2012 12:00 AM Depo-Medrol, Per 80 Mg [facility]#6774-5556-04 Reviewed 04/12/2012 12:00 AM ROUTINE VENIPUNCTURE Reviewed 04/12/2012 12:00 AM COMPLETE CBC W/AUTO DIFF WBC Reviewed 04/12/2012 12:00 AM COMPREHEN METABOLIC PANEL Reviewed 04/12/2012 12:00 AM LIPID PANEL Reviewed 04/12/2012 12:00 AM ASSAY OF PSA TOTAL Reviewed 09/23/2009 12:00 AM Decadron Inj.6mg-([facility]) [facility] #[id number] Reviewed 09/23/2009 12:00 AM Depo-Medrol 120 Mg Im/[facility] 0009-298086 Reviewed 11/06/2012 12:00 AM THER/PROPH/DIAG INJ SC/IM Reviewed 11/06/2012 12:00 AM Decadron, Per 1 Mg [facility]# [address]-56 Reviewed 11/06/2012 12:00 AM Depo-Medrol, Per 80 Mg [facility]#5172-3416-10 Reviewed 09/20/2013 12:00 AM THER/PROPH/DIAG INJ SC/IM Reviewed 09/20/2013 12:00 AM Decadron, Per 12 Mg [facility]# [address]-75 Reviewed 09/20/2013 12:00 AM Rocephin 1 gram [facility]#9667-6746-93 Reviewed 04/29/2010 12:00 AM THER/PROPH/DIAG INJ SC/IM Reviewed 04/29/2010 12:00 AM Decadron Inj.6mg-([facility]) [facility] #[id number] Reviewed 04/29/2010 12:00 AM Depo-Medrol 120 Mg Im/[facility] 0009-859440 Reviewed 07/08/2009 12:00 AM Decadron Inj.1mg-() [facility] #[id number] Reviewed 07/08/2009 12:00 AM Depo-Medrol 80 Mg Im/[facility]eb[facility] 0009-065833 Reviewed Results Summary Data and Description Results [...] 2.9 LDL (CALC) 100.0 mg/dLPSA TOTAL 1.990 ng/mLWBC 4.9 RBC 4.85 HGB 14.60 g/dLHCT 44.50 %MCV 92.0 fLMCH 30.10 pgMCHC 32.80 g/dLRDW SD 47 RDW CV 14.0 %MPV 11.40 fLPLT 192 NRBC# 0.00 NRBC% 0.0 %NEUT 48.40 %%LYMP 30.50 %%MONO 15.60 %%EOS 4.90 %%BASO 0.60 %#NEUT 2.36 #LYMP 1.49 #MONO 0.76 #EOS 0.24 #BASO 0.03 MANUAL DIFF SEE BELOW SEGS 42 BANDS 10 LYMPHS 28 MONOS 16 EOS 4.0 % History Of Immunizations Name [...] 4:06PM Medication management Sep 06 2016 4:06PM Payers Insurance Name Company Name Plan Name Plan Number Policy Number Policy Group Number Start Date [facility] Claims Center [id number] Sunday, 2010 [facility] [employer] [place] Medical Assistance Prog [id number] N/A Medicare Part A Medicare - Lab/Xray [id number] N/A [place] Management Retail Intern Prog - RHC [place] Management Retail Intern Prog - RHC [id number] N/A Advantra [place] Advantra [place] [id number] N/A Medicare Part A Medicare Part A [id number] N/A History of Encounters Visit Date Visit Type Provider 09/06/2016 Office visit MOY ARRIETA 08/29/2015 Office [...]
--- OUTSIDE RECORDS SUMMARY | 2017-06-23 10:09 | XMS REPORT | Continuity of Care Document ---
Author Author [facility] Organization [facility] Address Unknown Phone Unavailable Allergies There is no data. Medications There is no data. Problems There is no data. Procedures There is no data. Results There is no data. Encounters ACCT No. Visit Date/Time Discharge Status Pt. Type Provider Facility Loc./Unit Complaint [id number] 09/22/2015 14:24:02 [facility] Unknown [id number] 05/23/2017 10:01:59 05/23/2017 23:59:59 [facility] Outpatient SUZANNE ZAYAS [id number] 05/03/2017 11:41:04 05/03/2017 23:59:59 [facility] SUZANNE ZAYAS [id number] 09/06/2016 10:24:30 09/06/2016 23:59:59 [facility] Outpatient SUZANNE ZAYAS [id number] 08/29/2015 10:08:47 08/29/2015 23:59:59 [facility] Outpatient SUZANNE ZAYAS [id number] 08/18/2015 10:19:59 08/18/2015 23:59:59 [facility] Outpatient SUZANNE ZAYAS [id number] 04/08/2015 11:25:21 04/08/2015 23:59:59 [facility] Outpatient SUZANNE ZAYAS [id number] 03/07/2014 11:19:23 03/07/2014 23:59:59 [facility] Outpatient SUZANNE ZAYAS [id number] 09/20/2013 11:01:11 09/20/2013 23:59:59 [facility] Out[facility] SUZANNE ZAYAS [id number] 07/16/2013 13:06:46 Document Registration
--- OUTSIDE RECORDS SUMMARY | 2017-06-23 10:09 | XMS REPORT ---
Author Author MOY ZAYAS [facility] Address [address] [facility] [address] [place], [place] [address] Care Team Providers Care Head Start Director Name Role Phone MOY ZAYAS PCP Unavailable [...] PUFFS TWICE A DAY -THANK YOU. Ventolin HFA 108 (90 Base)MCG/ACT Inhalation Aerosol Solution 02/09/2016 USE 2 PUFFS EVERY 4 HOURS NEEDED [...] 4 HOURS NEEDED FOR WHEEZING -THANK YOU. Name Start Date Expiration Date [...] Ordered Description Order Status 08/31/2015 12:00 AM Decdonna Per 1 Mg [facility]# [address]-19 Reviewed 04/12/2012 12:00 AM THER/PROPH/DIAG INJ SC/IM Reviewed 04/12/2012 12:00 AM Decadron, Per 1 Mg [facility]# [address]-42 Reviewed 04/12/2012 12:00 AM Depo-Medrol, Per 80 Mg [facility]#6470-9494-52 Reviewed 04/12/2012 12:00 AM ROUTINE VENIPUNCTURE Reviewed 04/12/2012 12:00 AM COMPLETE CBC W/AUTO DIFF WBC Reviewed 04/12/2012 12:00 AM COMPREHEN METABOLIC PANEL Reviewed 04/12/2012 12:00 AM LIPID PANEL Reviewed 04/12/2012 12:00 AM ASSAY OF PSA TOTAL Reviewed 09/23/2009 12:00 AM Decadron Inj.6mg-([facility]) [facility] #[id number] Reviewed 09/23/2009 12:00 AM Depo-Medrol 120 Mg Im/[facility] Beb[facility] 0009-454049 Reviewed 11/06/2012 12:00 AM THER/PROPH/DIAG INJ SC/IM Reviewed 11/06/2012 12:00 AM Decadron, Per 1 Mg [facility]# [address]-43 Reviewed 11/06/2012 12:00 AM Depo-Medrol, Per 80 Mg [facility]#7242-5343-21 Reviewed 09/20/2013 12:00 AM THER/PROPH/DIAG INJ SC/IM Reviewed 09/20/2013 12:00 AM Decadron, Per 12 Mg [facility]# [address]-82 Reviewed 09/20/2013 12:00 AM Rocephin 1 gram [facility]#2098-6185-18 Reviewed 04/29/2010 12:00 AM THER/PROPH/DIAG INJ SC/IM Reviewed 04/29/2010 12:00 AM Decadron Inj.6mg-([facility]) [facility] #[id number] Reviewed 04/29/2010 12:00 AM Depo-Medrol 120 Mg Im/St Beb[facility] 0009-246996 Reviewed 07/08/2009 12:00 AM Decadron Inj.1mg-([facility]) [facility] #[id number] Reviewed 07/08/2009 12:00 AM Depo-Medrol 80 Mg Im/[facility]eb[facility] 0009-459076 Reviewed Results Summary Data and Description Results [...] % History Of Immunizations Name Date Admin [facility] Code Trade Name Lot# Route Inj Vis [...] 2016 10:11AM Fatigue Sep 06 2016 10:11AM Payers Insurance Name Company Name Plan Name Plan Number Policy Number Policy Group Number Start Date [facility] Humana Claims Center [id number] Sunday, 2010 [employer] Medical Assistance Program [place] Medical Assistance Prog [id number] N/A Medicare Part A Medicare - Lab/Xray [id number] N/A [place] Curator Natural History Museum Prog - RHC [place] Curator Natural History Museum Prog - RHC [id number] N/A Ad[employer] [place] [employer] [place] [id number] N/A Medicare Part A Medicare Part A [id number] N/A History of Encounters Visit Date Visit Type Provider 09/06/2016 Office visit MOY ARRIETA 08/29/2015 Office visit MOY ZAYAS PA 08/18/2015 Office visit MOY ZAYAS PA 04/08/2015 Office visit MOY ZAYAS PA 03/07/2014 Office visit MOY ZAYAS PA 09/20/2013 Office visit MOY ZAYAS PA 11/06/2012 Office visit MOY ZAYSA PA 04/12/2012 Office visit MOY ZAYAS PA 11/10/2011 Office visit MOY ZAYAS PA 10/18/2011 Office visit MOY ZAYAS PA 11/18/2010 Office visit Moy Zayas PA-C 08/13/2010 Office visit Moy Zayas PA-C 04/29/2010 Office visit Moy Zayas PA-C 12/02/2009 Office visit Moy Zayas PA-C 09/23/2009 Office visit Moy Zayas PA-C 07/08/2009 Office visit Moy Zayas PA-C 03/04/2009 Office visit MOY ARRIETA
[2017-06-23] MEDS ORDERED: LACTATED RINGERS 1,000 ML IV PRN (10:15)
[2017-06-23] MEDS ORDERED: ceFAZolin 2 GM/50 ML NS 50 ML IV ONE (10:15)
[2017-06-23 10:21] VITALS: BP 136/76
[2017-06-23] MEDS ORDERED: RT-ALBUTEROL SULF 2.5 MG/3 ML PRE-MIX VIAL INH ONE (10:45)
[2017-06-23] MEDS ORDERED: HEParin (CENTRAL IV FLUSH) 500 UNIT/5 ML SYR ONE (10:46)
[2017-06-23] MEDS ORDERED: 0.9% SODIUM CHLORIDE PF INJ 20 ML VIAL ONE (10:46)
--- NOTE | 2017-06-23 11:12 | Progress Note-Pre Operative ---
Pre-Operative Progress Note H&P Reviewed The H&P was reviewed, patient examined and no changes noted. Time Seen by Provider: 11:08 Date H&P Reviewed: Jun 23, 2017 Time H&P Reviewed: 11:11 Pre-Operative Diagnosis: Pancreatic CA, Venous Insufficiency WICHO PULIDO DO Jun 23, 2017 11:12
[2017-06-23] MEDS ORDERED: LIDOCAINE/EPI 1%-1:200,000 (XYLOCAINE) 10 ML VIAL ONE (11:23)
[2017-06-23] MEDS ORDERED: MIDAZOLAM 2 MG/2 ML (VERSED) VIAL ONE (11:30)
[2017-06-23] MEDS ORDERED: fentaNYL INJECTION 100 MCG/2 ML AMP ONE (11:31)
[2017-06-23 12:32] LABS: ABG BASE EXCESS 4.3 MMOL/L (-2.5-2.5); ABG OXYGEN SATURATION 100 % (94-100); ABG PCO2 50 MMHG (35-45); ABG PH 7.39 (7.37-7.43); ABG TCO2 30.5 MMOL/L (21.0-31.0)
[2017-06-23 12:35] LABS: ABG PO2 131 MMHG (79-93)
[2017-06-23] MEDS ORDERED: PROPOFOL INJECTION 50 ML IV ONE (12:54)
[2017-06-23] MEDS ORDERED: ACHD5005 PO (12:56)
--- NOTE | 2017-06-23 12:56 | Progress Note-Post Operative ---
Post-Operative Progess Note Surgeon (s)/Director Of Corporate Strategy (s) Surgeon WICHO PULIDO DO Director Of Corporate Strategy: none Pre-Operative Diagnosis Pancreatic CA, Venous Insufficiency Post-Operative Diagnosis Same Procedure & Operative Findings Date of Procedure 06/23/17 Procedure Performed/Findings [place]-cath insertion with US guidance Anesthesia Type MAC Estimated Blood Loss Estimated blood loss (mL): 30ml Specimens/Packing Specimens Removed none WICHO PULIDO DO Jun 23, 2017 12:55
--- NOTE | 2017-06-23 12:58 | Discharge Inst-Surgical ---
Discharge Inst-Surgical Depart Medication/Instructions New, Converted or Re-Newed RX: RX Given to Pt/Family Patient Instructions Follow up Appt: Make appointment for 1 week. Instructions: No lifting greater than 10 pounds. No strenuous activity. May shower in 24 hours, no tub bath or soaking. Use incentive spirometer at home as directed. No Smoking Skin/Wound Care: May remove bandages. You need to leave the Dermabond on over incision it will fall off its own. Symptoms to Report: Appetite Changes, Extremity Discoloration, Numbness/Tingling, Swelling Increased , Bleeding Excessive, Eyesight Changes, Pain Increased, Urine Color Change, Constipation(Persistent), Fever over 101 degree F, Pain/Pressure in chest, Urinating Difficulty, Cough Up/Vomit Blood, Heart Beat Irreg/Pounding, Pain/ Pressure in jaw, Cramps in feet or legs, Lightheadedness, Pain/Pressure in shoulder, Diarrhea(Persistent), Memory Changes Suddenly, Questions/Concerns, Weight gain consecutive days, Dizziness/Fainting, Nausea/Vomiting, Shortness of Breath, Weight gain over 2 pounds If questions or concerns contact your physician Or seek help at emergency department. Activity Driving Instructions: No Driving/Refer to Dr. Dela Cruz Discharge Diet: No Restrictions Diet After 24 Hours: Clear Liquid if Nauseous If Any Problems/Questions/Issu: Contact Your Physician, Go to Emergency Room Skin/Wound Care Infection Signs and Symptoms: Increased Redness, Increased Drainage, Increased Swelling, Temperature Above 101 F Stitches/[place]/Dermabond Dis: WICHO Tavera DO Jun 23, 2017 12:58
[2017-06-23] MEDS ORDERED: morphine INJ 10 MG/ML 1ML (SYR OR VIAL) IVP PRN (13:15)
[2017-06-23] MEDS ORDERED: ONDANSETRON 4 MG/2 ML (SDV) Z0FRAN IVP PRN (13:15)
[2017-06-23] MEDS ORDERED: MEPERIDINE (DEMEROL) INJ 50 MG/ML IVP PRN (13:15)
[2017-06-23 13:33] VITALS: BP 132/62
--- NOTE | 2017-06-23 13:52 | Diagnostic Imaging Report ---
EXAM: Intraoperative view of the chest. INDICATION: Post placement FINDINGS: 16 seconds of fluoroscopy time was provided to the OR. IMPRESSION: Provided intraoperative image demonstrates a right IJ port placement with its catheter tip around the cavoatrial junction. Dictated by: Dictated on workstation # [id number]
--- NOTE | 2017-06-23 14:02 | Diagnostic Imaging Report ---
EXAMINATION: Portable upright radiograph of the chest. INDICATION: Port placement. FINDINGS: There is a left IJ port placed with the tip at the cavoatrial junction. The lungs are hyperinflated with no focal infiltrates. The heart size is normal. No effusion or pneumothorax. Mediastinum and emanuel appear unremarkable. IMPRESSION: Left IJ port placement with the tip projecting at the cavoatrial junction. No pneumothorax. Dictated by: Dictated on workstation # [id number]
[2017-06-23 14:03] VITALS: BP 112/57
[2017-06-23 14:27] VITALS: BP 112/57
--- NOTE | 2017-06-23 23:19 | OPERATIVE REPORT ---
DATE OF SERVICE: PREOPERATIVE DIAGNOSES: 1. Pancreatic cancer. 2. Venous insufficiency. POSTOPERATIVE DIAGNOSES: 1. Pancreatic cancer. 2. Venous insufficiency. PROCEDURE: Insertion of Port-A-Cath with ultrasound guidance. SURGEON: Sony Ring D.O. COMMUNITY HEALTH NAVIGATOR: None. ANESTHESIA: IV sedation by REAL ESTATE ACQUISITION ANALYST. BLOOD LOSS: Approximately 30 mL. SPECIMENS: None. COMPLICATIONS: Incidentally, accessed the subclavian artery. PROCEDURE NOTE: After informed consent was obtained, the patient was brought to the operating room, placed on the operating table in supine position. He was sterilely prepped and draped in normal fashion. I started by infiltrating the left anterior chest wall with local lidocaine, then at the clavicle with local lidocaine and then inserted an 18-gauge fine needle with negative inspiration, got a immediate flush of blood, removed the syringe, placed a guidewire using Seldinger technique. The REAL ESTATE ACQUISITION ANALYST thought that there was some ectopy and it looked like the guidewire was on the left side. I made a stab incision with a #11-blade. Then, I made an incision in the left anterior chest wall with #11-blade, carried down through the skin and subcutaneous tissue, then deepened down subcutaneous tissue with Bovie electrocautery down to the fascia of the pectoralis major muscle. I created a pocket for the port. Then, over the guidewire, using the Seldinger technique, placed the dilator. Checked with fluoroscopy, a dilator and wire appeared to be go across the chest into the right side of the chest and then removed the inner portion of the dilator and the guidewire; however, when I did this, got a lot of blood out may about 20 mL. I placed the catheter and went in easily and had already tunneled this catheter under into the port, but when rechecked with fluoroscopy, now the catheter appeared to be on the left side of the chest. I did not really get a pulsating blood and with the syringe in place, did not really get blood pushing out, but I elected to get the specimen and then send this for ABG. While waiting for ABG, got another port kit and using ultrasound guidance, easily accessed the left internal jugular vein, watched the needle go right into the internal jugular vein and then got a good flush of blood, removed the syringe, placed a guidewire using Seldinger technique and checked with fluoroscopy and the guidewire appeared to be on the right side of the chest. I then waited for the ABG result. ABG result came back, and the first catheter and the left subclavian was actually in the artery. I removed this and held pressure, made a stab incision at the guidewire and then tunneled the catheter from this incision down to the pocket and then over the guidewire placed the dilator using the Seldinger technique. It went in easily, removed the inner portion of the dilator and then wire and then placed the catheter down the dilator using the Seldinger technique, it went easily. I checked fluoroscopy, it appeared to be in the right side of the chest. I removed the external portion of the dilator and I removed the other port and catheter. I cut off the distal portion of the catheter attached to the port and then placed a locking mechanism on, easily aspirated good flush of blood and then flushed with saline, sutured this in place on to the pectoralis major muscle with 3-0 Prolene and then through the skin, accessed the port again, got a good flush of blood and then flushed with heparinized saline. I checked with fluoroscopy again, appeared to be good, no kinks and I was still on the right side of the chest, then closed this left chest wall incision with 3-0 Vicryl, subcutaneous stitch 3 of them and then closed the skin with 4-0 undyed Monocryl 3 interrupted subcuticular stitches. Area was cleaned and dried, Dermabond placed on all incisions. The patient tolerated the procedure. There was no bleeding under the left subclavian vein. There was no expanding hematoma. I had held pressure for at least 5 minutes or more. The patient was then subsequently transferred to recovery room in stable condition. Sponge, instrument and needle count were correct at the end of the case and a stat chest x-ray was ordered, no pneumothorax seen. Job ID: [id number] DocumentID: [id number] Dictated Date: 06/23/2017 17:08:54 Data Recovery Planner Date: 06/23/2017 22:32:11 Dictated By: SONY RING DO
== END 2017-06-23 14:27 | disposition home or self-care (01) ==
LOC: SDC 09:59
PROVIDERS: ATTEND Surgery
DX: C25.0 Malignant neoplasm of head of pancreas (principal); I87.2 Venous insufficiency (chronic) (peripheral); J44.9 Chronic obstructive pulmonary disease, unspecified; Z87.891 Personal history of nicotine dependence; Z79.899 Other long term (current) drug therapy
CPT/HCPCS: 71010; 82805; 87081; 94640

== ENCOUNTER 2017-09-02 09:53 | Outpatient (RCR) | payer OTHER, MEDICAID ==
[2017-06-14 12:12] LABS: BASOPHILS # (AUTO) 0.1 10^3/uL (0.0-0.1); BASOPHILS % (AUTO) 1 % (0-10); EOSINOPHILS # (AUTO) 0.1 10^3/uL (0.0-0.3); EOSINOPHILS % (AUTO) 2 % (0-10); HEMATOCRIT 40 % (40-54); HEMOGLOBIN 13.4 G/DL (13.3-17.7); LYMPHOCYTES # (AUTO) 3.1 X 10^3 (1.0-4.0); LYMPHOCYTES % (AUTO) 43 % (12-44); MEAN CORPUSCULAR HEMOGLOBIN 32 PG (25-34); MEAN CORPUSCULAR HGB CONC 34 G/DL (32-36); MEAN CORPUSCULAR VOLUME 96 FL (80-99); MEAN PLATELET VOLUME 11.5 FL (7.4-10.4); MONOCYTES # (AUTO) 0.7 X 10^3 (0.0-1.0); MONOCYTES % (AUTO) 9 % (0-12); NEUTROPHILS # (AUTO) 3.3 X 10^3 (1.8-7.8); NEUTROPHILS % (AUTO) 45 % (42-75); PLATELET COUNT 330 10^3/uL (130-400); RED BLOOD COUNT 4.15 10^6/uL (4.35-5.85); RED CELL DISTRIBUTION WIDTH 15.5 % (10.0-14.5); WHITE BLOOD COUNT 7.2 10^3/uL (4.3-11.0)
[2017-06-14 12:36] LABS: ALANINE AMINOTRANSFERASE 60 U/L (0-55); ALBUMIN 3.6 GM/DL (3.2-4.5); ALKALINE PHOSPHATASE 118 U/L (40-136); BUN/CREATININE RATIO 10; CALCIUM 9.2 MG/DL (8.5-10.1); CARBON DIOXIDE 31 MMOL/L (21-32); CHLORIDE 99 MMOL/L (98-107); CREATININE SERUM 0.81 MG/DL (0.60-1.30); GFR ESTIMATED > 60; GLUCOSE 357 MG/DL (70-105); POTASSIUM 4.6 MMOL/L (3.6-5.0); SODIUM 139 MMOL/L (135-145); TOTAL PROTEIN 6.9 GM/DL (6.4-8.2)
[2017-06-24 09:34] LABS: BASOPHILS % (AUTO) 0 % (0-10); EOSINOPHILS # (AUTO) 0.2 10^3/uL (0.0-0.3); EOSINOPHILS % (AUTO) 2 % (0-10); HEMATOCRIT 38 % (40-54); HEMOGLOBIN 12.6 G/DL (13.3-17.7); LYMPHOCYTES # (AUTO) 2.4 X 10^3 (1.0-4.0); LYMPHOCYTES % (AUTO) 29 % (12-44); MEAN CORPUSCULAR HEMOGLOBIN 32 PG (25-34); MEAN CORPUSCULAR HGB CONC 33 G/DL (32-36); MEAN CORPUSCULAR VOLUME 96 FL (80-99); MEAN PLATELET VOLUME 11.2 FL (7.4-10.4); MONOCYTES % (AUTO) 12 % (0-12); NEUTROPHILS # (AUTO) 4.6 X 10^3 (1.8-7.8); NEUTROPHILS % (AUTO) 57 % (42-75); PLATELET COUNT 212 10^3/uL (130-400); RED BLOOD COUNT 3.99 10^6/uL (4.35-5.85); RED CELL DISTRIBUTION WIDTH 14.4 % (10.0-14.5); WHITE BLOOD COUNT 8.1 10^3/uL (4.3-11.0)
[2017-06-24 09:57] LABS: ALANINE AMINOTRANSFERASE 28 U/L (0-55); ALBUMIN 3.4 GM/DL (3.2-4.5); ALKALINE PHOSPHATASE 103 U/L (40-136); BILIRUBIN,TOTAL 2.6 MG/DL (0.1-1.0); BUN/CREATININE RATIO 11; CALCIUM 9.1 MG/DL (8.5-10.1); CARBON DIOXIDE 29 MMOL/L (21-32); CHLORIDE 101 MMOL/L (98-107); CREATININE SERUM 0.66 MG/DL (0.60-1.30); GFR ESTIMATED > 60; GLUCOSE 183 MG/DL (70-105); POTASSIUM 4.1 MMOL/L (3.6-5.0); SODIUM 139 MMOL/L (135-145); TOTAL PROTEIN 6.5 GM/DL (6.4-8.2)
[2017-06-30 09:19] LABS: BASOPHILS % (AUTO) 0 % (0-10); EOSINOPHILS # (AUTO) 0.1 10^3/uL (0.0-0.3); EOSINOPHILS % (AUTO) 2 % (0-10); HEMATOCRIT 34 % (40-54); HEMOGLOBIN 12.7 G/DL (13.3-17.7); LYMPHOCYTES % (AUTO) 48 % (12-44); MEAN CORPUSCULAR HEMOGLOBIN 32 PG (25-34); MEAN CORPUSCULAR HGB CONC 37 G/DL (32-36); MEAN CORPUSCULAR VOLUME 85 FL (80-99); MEAN PLATELET VOLUME 10.3 FL (7.4-10.4); MONOCYTES # (AUTO) 0.2 X 10^3 (0.0-1.0); MONOCYTES % (AUTO) 4 % (0-12); NEUTROPHILS % (AUTO) 47 % (42-75); PLATELET COUNT 171 10^3/uL (130-400); RED BLOOD COUNT 4.02 10^6/uL (4.35-5.85); RED CELL DISTRIBUTION WIDTH 13.1 % (10.0-14.5); WHITE BLOOD COUNT 4.3 10^3/uL (4.3-11.0)
[2017-06-30 09:40] LABS: ALANINE AMINOTRANSFERASE 30 U/L (0-55); ALBUMIN 3.4 GM/DL (3.2-4.5); ALKALINE PHOSPHATASE 83 U/L (40-136); BILIRUBIN,TOTAL 1.9 MG/DL (0.1-1.0); BUN/CREATININE RATIO 12; CALCIUM 8.8 MG/DL (8.5-10.1); CARBON DIOXIDE 28 MMOL/L (21-32); CHLORIDE 103 MMOL/L (98-107); CREATININE SERUM 0.68 MG/DL (0.60-1.30); GFR ESTIMATED > 60; GLUCOSE 199 MG/DL (70-105); POTASSIUM 3.9 MMOL/L (3.6-5.0); SODIUM 139 MMOL/L (135-145); TOTAL PROTEIN 6.5 GM/DL (6.4-8.2)
[2017-07-08 10:42] LABS: BASOPHILS % (AUTO) 0 % (0-10); EOSINOPHILS # (AUTO) 0.1 10^3/uL (0.0-0.3); EOSINOPHILS % (AUTO) 3 % (0-10); HEMATOCRIT 35 % (40-54); HEMOGLOBIN 11.7 G/DL (13.3-17.7); LYMPHOCYTES # (AUTO) 1.3 X 10^3 (1.0-4.0); LYMPHOCYTES % (AUTO) 37 % (12-44); MEAN CORPUSCULAR HEMOGLOBIN 32 PG (25-34); MEAN CORPUSCULAR HGB CONC 34 G/DL (32-36); MEAN CORPUSCULAR VOLUME 93 FL (80-99); MEAN PLATELET VOLUME 10.7 FL (7.4-10.4); MONOCYTES # (AUTO) 0.3 X 10^3 (0.0-1.0); MONOCYTES % (AUTO) 8 % (0-12); NEUTROPHILS # (AUTO) 1.8 X 10^3 (1.8-7.8); NEUTROPHILS % (AUTO) 52 % (42-75); RED BLOOD COUNT 3.72 10^6/uL (4.35-5.85); RED CELL DISTRIBUTION WIDTH 13.1 % (10.0-14.5); WHITE BLOOD COUNT 3.4 10^3/uL (4.3-11.0)
[2017-07-08 10:43] LABS: PLATELET COUNT 59 10^3/uL (130-400)
[2017-07-08 11:20] LABS: ALANINE AMINOTRANSFERASE 30 U/L (0-55); ALBUMIN 3.1 GM/DL (3.2-4.5); ALKALINE PHOSPHATASE 62 U/L (40-136); BILIRUBIN,TOTAL 1.3 MG/DL (0.1-1.0); BUN/CREATININE RATIO 13; CALCIUM 8.1 MG/DL (8.5-10.1); CARBON DIOXIDE 28 MMOL/L (21-32); CHLORIDE 101 MMOL/L (98-107); CREATININE SERUM 0.68 MG/DL (0.60-1.30); GFR ESTIMATED > 60; GLUCOSE 146 MG/DL (70-105); POTASSIUM 3.6 MMOL/L (3.6-5.0); SODIUM 139 MMOL/L (135-145); TOTAL PROTEIN 5.7 GM/DL (6.4-8.2)
[2017-07-15 10:31] LABS: BASOPHILS % (AUTO) 0 % (0-10); EOSINOPHILS # (AUTO) 0.1 10^3/uL (0.0-0.3); EOSINOPHILS % (AUTO) 3 % (0-10); HEMATOCRIT 39 % (40-54); HEMOGLOBIN 12.9 G/DL (13.3-17.7); LYMPHOCYTES # (AUTO) 1.8 X 10^3 (1.0-4.0); LYMPHOCYTES % (AUTO) 35 % (12-44); MEAN CORPUSCULAR HEMOGLOBIN 31 PG (25-34); MEAN CORPUSCULAR HGB CONC 33 G/DL (32-36); MEAN CORPUSCULAR VOLUME 94 FL (80-99); MEAN PLATELET VOLUME 9.7 FL (7.4-10.4); MONOCYTES % (AUTO) 20 % (0-12); NEUTROPHILS # (AUTO) 2.2 X 10^3 (1.8-7.8); NEUTROPHILS % (AUTO) 43 % (42-75); PLATELET COUNT 706 10^3/uL (130-400); RED BLOOD COUNT 4.13 10^6/uL (4.35-5.85); RED CELL DISTRIBUTION WIDTH 13.7 % (10.0-14.5); WHITE BLOOD COUNT 5.1 10^3/uL (4.3-11.0)
[2017-07-15 10:54] LABS: ALANINE AMINOTRANSFERASE 22 U/L (0-55); ALBUMIN 3.2 GM/DL (3.2-4.5); ALKALINE PHOSPHATASE 73 U/L (40-136); BILIRUBIN,TOTAL 1.1 MG/DL (0.1-1.0); BUN/CREATININE RATIO 10; CALCIUM 8.7 MG/DL (8.5-10.1); CARBON DIOXIDE 26 MMOL/L (21-32); CHLORIDE 103 MMOL/L (98-107); GFR ESTIMATED > 60; GLUCOSE 146 MG/DL (70-105); POTASSIUM 4.3 MMOL/L (3.6-5.0); SODIUM 140 MMOL/L (135-145); TOTAL PROTEIN 6.2 GM/DL (6.4-8.2)
[2017-07-22 10:19] LABS: BASOPHILS # (AUTO) 0.1 10^3/uL (0.0-0.1); BASOPHILS % (AUTO) 1 % (0-10); EOSINOPHILS # (AUTO) 0.2 10^3/uL (0.0-0.3); EOSINOPHILS % (AUTO) 2 % (0-10); HEMATOCRIT 38 % (40-54); HEMOGLOBIN 12.4 G/DL (13.3-17.7); LYMPHOCYTES # (AUTO) 2.3 X 10^3 (1.0-4.0); LYMPHOCYTES % (AUTO) 27 % (12-44); MEAN CORPUSCULAR HEMOGLOBIN 31 PG (25-34); MEAN CORPUSCULAR HGB CONC 33 G/DL (32-36); MEAN CORPUSCULAR VOLUME 94 FL (80-99); MEAN PLATELET VOLUME 10.5 FL (7.4-10.4); MONOCYTES # (AUTO) 1.3 X 10^3 (0.0-1.0); MONOCYTES % (AUTO) 16 % (0-12); NEUTROPHILS # (AUTO) 4.7 X 10^3 (1.8-7.8); NEUTROPHILS % (AUTO) 55 % (42-75); PLATELET COUNT 456 10^3/uL (130-400); RED CELL DISTRIBUTION WIDTH 13.1 % (10.0-14.5); WHITE BLOOD COUNT 8.6 10^3/uL (4.3-11.0)
[2017-07-22 10:46] LABS: ALANINE AMINOTRANSFERASE 27 U/L (0-55); ALBUMIN 3.2 GM/DL (3.2-4.5); ALKALINE PHOSPHATASE 98 U/L (40-136); BILIRUBIN,TOTAL 0.9 MG/DL (0.1-1.0); BUN/CREATININE RATIO 9; CALCIUM 8.7 MG/DL (8.5-10.1); CARBON DIOXIDE 28 MMOL/L (21-32); CHLORIDE 101 MMOL/L (98-107); CREATININE SERUM 0.66 MG/DL (0.60-1.30); GFR ESTIMATED > 60; GLUCOSE 129 MG/DL (70-105); POTASSIUM 4.3 MMOL/L (3.6-5.0); SODIUM 138 MMOL/L (135-145); TOTAL PROTEIN 6.3 GM/DL (6.4-8.2)
[2017-07-29 10:12] LABS: BASOPHILS % (AUTO) 1 % (0-10); EOSINOPHILS # (AUTO) 0.1 10^3/uL (0.0-0.3); EOSINOPHILS % (AUTO) 2 % (0-10); HEMATOCRIT 36 % (40-54); HEMOGLOBIN 12.2 G/DL (13.3-17.7); LYMPHOCYTES # (AUTO) 1.8 X 10^3 (1.0-4.0); LYMPHOCYTES % (AUTO) 44 % (12-44); MEAN CORPUSCULAR HEMOGLOBIN 31 PG (25-34); MEAN CORPUSCULAR HGB CONC 34 G/DL (32-36); MEAN CORPUSCULAR VOLUME 92 FL (80-99); MONOCYTES # (AUTO) 0.4 X 10^3 (0.0-1.0); MONOCYTES % (AUTO) 10 % (0-12); NEUTROPHILS # (AUTO) 1.8 X 10^3 (1.8-7.8); NEUTROPHILS % (AUTO) 42 % (42-75); PLATELET COUNT 189 10^3/uL (130-400); RED BLOOD COUNT 3.94 10^6/uL (4.35-5.85); RED CELL DISTRIBUTION WIDTH 12.6 % (10.0-14.5); WHITE BLOOD COUNT 4.1 10^3/uL (4.3-11.0)
[2017-07-29 10:31] LABS: ALANINE AMINOTRANSFERASE 40 U/L (0-55); ALBUMIN 3.2 GM/DL (3.2-4.5); ALKALINE PHOSPHATASE 89 U/L (40-136); BILIRUBIN,TOTAL 0.8 MG/DL (0.1-1.0); BUN/CREATININE RATIO 13; CALCIUM 8.6 MG/DL (8.5-10.1); CARBON DIOXIDE 26 MMOL/L (21-32); CHLORIDE 103 MMOL/L (98-107); CREATININE SERUM 0.64 MG/DL (0.60-1.30); GFR ESTIMATED > 60; GLUCOSE 136 MG/DL (70-105); POTASSIUM 3.7 MMOL/L (3.6-5.0); SODIUM 140 MMOL/L (135-145); TOTAL PROTEIN 6.3 GM/DL (6.4-8.2)
[2017-08-05 10:34] LABS: BASOPHILS % (AUTO) 1 % (0-10); EOSINOPHILS % (AUTO) 1 % (0-10); HEMATOCRIT 33 % (40-54); HEMOGLOBIN 11.1 G/DL (13.3-17.7); LYMPHOCYTES # (AUTO) 1.4 X 10^3 (1.0-4.0); LYMPHOCYTES % (AUTO) 40 % (12-44); MEAN CORPUSCULAR HEMOGLOBIN 31 PG (25-34); MEAN CORPUSCULAR HGB CONC 34 G/DL (32-36); MEAN CORPUSCULAR VOLUME 91 FL (80-99); MEAN PLATELET VOLUME 10.6 FL (7.4-10.4); MONOCYTES # (AUTO) 0.3 X 10^3 (0.0-1.0); MONOCYTES % (AUTO) 7 % (0-12); NEUTROPHILS # (AUTO) 1.9 X 10^3 (1.8-7.8); NEUTROPHILS % (AUTO) 52 % (42-75); PLATELET COUNT 97 10^3/uL (130-400); RED BLOOD COUNT 3.61 10^6/uL (4.35-5.85); RED CELL DISTRIBUTION WIDTH 12.6 % (10.0-14.5); WHITE BLOOD COUNT 3.7 10^3/uL (4.3-11.0)
[2017-08-05 10:51] LABS: ALANINE AMINOTRANSFERASE 28 U/L (0-55); ALBUMIN 3.1 GM/DL (3.2-4.5); ALKALINE PHOSPHATASE 81 U/L (40-136); BILIRUBIN,TOTAL 0.8 MG/DL (0.1-1.0); BUN/CREATININE RATIO 9; CALCIUM 8.4 MG/DL (8.5-10.1); CARBON DIOXIDE 23 MMOL/L (21-32); CHLORIDE 105 MMOL/L (98-107); CREATININE SERUM 0.64 MG/DL (0.60-1.30); GFR ESTIMATED > 60; GLUCOSE 145 MG/DL (70-105); POTASSIUM 3.8 MMOL/L (3.6-5.0); SODIUM 139 MMOL/L (135-145)
[2017-08-19 10:29] LABS: BASOPHILS % (AUTO) 1 % (0-10); EOSINOPHILS # (AUTO) 0.2 10^3/uL (0.0-0.3); EOSINOPHILS % (AUTO) 3 % (0-10); HEMATOCRIT 35 % (40-54); HEMOGLOBIN 11.8 G/DL (13.3-17.7); LYMPHOCYTES # (AUTO) 1.5 X 10^3 (1.0-4.0); LYMPHOCYTES % (AUTO) 26 % (12-44); MEAN CORPUSCULAR HEMOGLOBIN 31 PG (25-34); MEAN CORPUSCULAR HGB CONC 34 G/DL (32-36); MEAN CORPUSCULAR VOLUME 90 FL (80-99); MEAN PLATELET VOLUME 9.3 FL (7.4-10.4); MONOCYTES # (AUTO) 1.1 X 10^3 (0.0-1.0); MONOCYTES % (AUTO) 19 % (0-12); NEUTROPHILS % (AUTO) 52 % (42-75); PLATELET COUNT 861 10^3/uL (130-400); RED BLOOD COUNT 3.86 10^6/uL (4.35-5.85); RED CELL DISTRIBUTION WIDTH 13.6 % (10.0-14.5); WHITE BLOOD COUNT 5.9 10^3/uL (4.3-11.0)
[2017-08-19 10:54] LABS: ALANINE AMINOTRANSFERASE 16 U/L (0-55); ALKALINE PHOSPHATASE 71 U/L (40-136); BILIRUBIN,TOTAL 0.6 MG/DL (0.1-1.0); BUN/CREATININE RATIO 6; CALCIUM 8.6 MG/DL (8.5-10.1); CARBON DIOXIDE 30 MMOL/L (21-32); CHLORIDE 102 MMOL/L (98-107); CREATININE SERUM 0.64 MG/DL (0.60-1.30); GFR ESTIMATED > 60; GLUCOSE 134 MG/DL (70-105); POTASSIUM 3.5 MMOL/L (3.6-5.0); SODIUM 141 MMOL/L (135-145); TOTAL PROTEIN 5.9 GM/DL (6.4-8.2)
[2017-08-26 10:51] LABS: BASOPHILS # (AUTO) 0.1 10^3/uL (0.0-0.1); BASOPHILS % (AUTO) 1 % (0-10); EOSINOPHILS # (AUTO) 0.1 10^3/uL (0.0-0.3); EOSINOPHILS % (AUTO) 1 % (0-10); HEMATOCRIT 35 % (40-54); HEMOGLOBIN 11.7 G/DL (13.3-17.7); LYMPHOCYTES # (AUTO) 1.8 X 10^3 (1.0-4.0); LYMPHOCYTES % (AUTO) 31 % (12-44); MEAN CORPUSCULAR HEMOGLOBIN 30 PG (25-34); MEAN CORPUSCULAR HGB CONC 33 G/DL (32-36); MEAN CORPUSCULAR VOLUME 90 FL (80-99); MONOCYTES # (AUTO) 0.8 X 10^3 (0.0-1.0); MONOCYTES % (AUTO) 14 % (0-12); NEUTROPHILS # (AUTO) 3.1 X 10^3 (1.8-7.8); NEUTROPHILS % (AUTO) 53 % (42-75); PLATELET COUNT 396 10^3/uL (130-400); RED CELL DISTRIBUTION WIDTH 13.7 % (10.0-14.5); WHITE BLOOD COUNT 5.8 10^3/uL (4.3-11.0)
[2017-08-26 11:09] LABS: ALANINE AMINOTRANSFERASE 33 U/L (0-55); ALKALINE PHOSPHATASE 66 U/L (40-136); BILIRUBIN,TOTAL 0.5 MG/DL (0.1-1.0); BUN/CREATININE RATIO 9; CALCIUM 8.5 MG/DL (8.5-10.1); CARBON DIOXIDE 25 MMOL/L (21-32); CHLORIDE 105 MMOL/L (98-107); CREATININE SERUM 0.65 MG/DL (0.60-1.30); GFR ESTIMATED > 60; GLUCOSE 127 MG/DL (70-105); POTASSIUM 3.7 MMOL/L (3.6-5.0); SODIUM 139 MMOL/L (135-145); TOTAL PROTEIN 5.8 GM/DL (6.4-8.2)
[~2017-09-02] VITALS: Ht 174 cm; Wt 64.9 kg
[~2017-09-02 09:53] MED LIST changes: +ACHD5005 PO; +CTR IV SCH; +GEMCITABINE HCL (GENERIC) 1,000 MG, GEMCITABINE HCL (GENERIC) 700 MG in NS (IVPB) CANCE... IV SCH; +GEMCITABINE HCL IV SCH; +NS IV 1000 ML (CANCER CTR) IV SCH; +NS IV SCH; +ONDANSETRON MDV (CANCER CENTER 16 MG, DEXAMETHASONE PF INJ (CANCER C 10 MG in D5W 50 ML... IV ONE; +ONDANSETRON MDV (CANCER CENTER 16 MG, DEXAMETHASONE PF INJ (CANCER C 10 MG in NS (IVPB)... IV SCH; +PACLITAXEL PROTEIN IV SCH; +PACLitaxel PROTEIN 200 MG in EMPTY IV BAG (PVC) CANCER CTR 1 EA IV SCH; +[UNRECOGNIZED DRUG - OTHER] IV SCH; +[UNRECOGNIZED DRUG - OTHER] IV SCH
[2017-09-02 10:33] LABS: BASOPHILS % (AUTO) 1 % (0-10); EOSINOPHILS % (AUTO) 1 % (0-10); HEMATOCRIT 33 % (40-54); LYMPHOCYTES # (AUTO) 1.4 X 10^3 (1.0-4.0); LYMPHOCYTES % (AUTO) 40 % (12-44); MEAN CORPUSCULAR HEMOGLOBIN 30 PG (25-34); MEAN CORPUSCULAR HGB CONC 34 G/DL (32-36); MEAN CORPUSCULAR VOLUME 88 FL (80-99); MEAN PLATELET VOLUME 10.7 FL (7.4-10.4); MONOCYTES # (AUTO) 0.3 X 10^3 (0.0-1.0); MONOCYTES % (AUTO) 9 % (0-12); NEUTROPHILS # (AUTO) 1.7 X 10^3 (1.8-7.8); NEUTROPHILS % (AUTO) 49 % (42-75); PLATELET COUNT 154 10^3/uL (130-400); RED BLOOD COUNT 3.72 10^6/uL (4.35-5.85); RED CELL DISTRIBUTION WIDTH 14.1 % (10.0-14.5); WHITE BLOOD COUNT 3.5 10^3/uL (4.3-11.0)
[2017-09-02 10:51] LABS: ALANINE AMINOTRANSFERASE 47 U/L (0-55); ALBUMIN 3.3 GM/DL (3.2-4.5); ALKALINE PHOSPHATASE 83 U/L (40-136); BILIRUBIN,TOTAL 0.7 MG/DL (0.1-1.0); BUN/CREATININE RATIO 20; CALCIUM 8.6 MG/DL (8.5-10.1); CARBON DIOXIDE 28 MMOL/L (21-32); CHLORIDE 102 MMOL/L (98-107); CREATININE SERUM 0.64 MG/DL (0.60-1.30); GFR ESTIMATED > 60; GLUCOSE 123 MG/DL (70-105); POTASSIUM 3.8 MMOL/L (3.6-5.0); SODIUM 137 MMOL/L (135-145); TOTAL PROTEIN 6.2 GM/DL (6.4-8.2)
== END 2017-09-08 | disposition home or self-care (01) ==
LOC: ONC 09:53
PROVIDERS: ATTEND Internal Medicine Hematology & Oncology
DX: Z51.11 Encounter for antineoplastic chemotherapy (principal); C25.0 Malignant neoplasm of head of pancreas; D69.59 Other secondary thrombocytopenia; T45.1X5A Adverse effect of antineoplastic and immunosuppressive drugs, initial encounter; J43.8 Other emphysema; Z87.891 Personal history of nicotine dependence; Z79.899 Other long term (current) drug therapy
CPT/HCPCS: 36415; 36591; 80053; 85025; 86301; 96375; 96413; 96417; 99214

== ENCOUNTER → 2017-09-16 | Outpatient (CLI) | payer OTHER, MEDICAID ==
[~2017-09-16] MED LIST changes: -CTR IV SCH; -GEMCITABINE HCL (GENERIC) 1,000 MG, GEMCITABINE HCL (GENERIC) 700 MG in NS (IVPB) CANCE... IV SCH; -GEMCITABINE HCL IV SCH; -NS IV 1000 ML (CANCER CTR) IV SCH; -NS IV SCH; -ONDANSETRON MDV (CANCER CENTER 16 MG, DEXAMETHASONE PF INJ (CANCER C 10 MG in D5W 50 ML... IV ONE; -ONDANSETRON MDV (CANCER CENTER 16 MG, DEXAMETHASONE PF INJ (CANCER C 10 MG in NS (IVPB)... IV SCH; -PACLITAXEL PROTEIN IV SCH; -PACLitaxel PROTEIN 200 MG in EMPTY IV BAG (PVC) CANCER CTR 1 EA IV SCH; -[UNRECOGNIZED DRUG - OTHER] IV SCH; -[UNRECOGNIZED DRUG - OTHER] IV SCH
--- NOTE | 2017-09-16 11:51 | Diagnostic Imaging Report ---
INDICATION: Dyspnea, COPD, and pancreatic carcinoma. TIME OF EXAMINATION: 11:17 a.m. COMPARISON: Correlation is made with prior study from 06/23/2017. FINDINGS: A left subclavian chest wall port has the tip at the SVC right atrial junction. The lungs do appear to be hyperinflated consistent with COPD. Slightly nodular density is noted overlying the right lung base, perhaps a nipple shadow. The remainder of the lungs are clear. No effusion is seen. No pneumothorax is identified. IMPRESSION: COPD. No acute cardiopulmonary process is identified. There is a small nodular density right lower lung field, perhaps a nipple shadow. A repeat chest radiograph with nipple markers could be performed for further evaluation. Dictated by: Dictated on workstation # [id number]
== END ==
LOC: RAD 10:36
PROVIDERS: ATTEND Internal Medicine Hematology & Oncology
DX: C25.0 Malignant neoplasm of head of pancreas (principal); J44.9 Chronic obstructive pulmonary disease, unspecified; R91.1 Solitary pulmonary nodule
CPT/HCPCS: 71046

== ENCOUNTER 2017-12-09 09:45 | Outpatient (RCR) | payer OTHER, MEDICAID ==
[2017-09-16 10:18] LABS: BASOPHILS # (AUTO) 0.1 10^3/uL (0.0-0.1); BASOPHILS % (AUTO) 1 % (0-10); EOSINOPHILS # (AUTO) 0.3 10^3/uL (0.0-0.3); EOSINOPHILS % (AUTO) 3 % (0-10); HEMATOCRIT 32 % (40-54); HEMOGLOBIN 10.5 G/DL (13.3-17.7); LYMPHOCYTES # (AUTO) 1.5 X 10^3 (1.0-4.0); LYMPHOCYTES % (AUTO) 17 % (12-44); MEAN CORPUSCULAR HEMOGLOBIN 29 PG (25-34); MEAN CORPUSCULAR HGB CONC 33 G/DL (32-36); MEAN CORPUSCULAR VOLUME 88 FL (80-99); MEAN PLATELET VOLUME 9.4 FL (7.4-10.4); MONOCYTES # (AUTO) 1.4 X 10^3 (0.0-1.0); MONOCYTES % (AUTO) 17 % (0-12); NEUTROPHILS # (AUTO) 5.4 X 10^3 (1.8-7.8); NEUTROPHILS % (AUTO) 63 % (42-75); RED BLOOD COUNT 3.66 10^6/uL (4.35-5.85); RED CELL DISTRIBUTION WIDTH 16.4 % (10.0-14.5); WHITE BLOOD COUNT 8.7 10^3/uL (4.3-11.0)
[2017-09-16 10:42] LABS: ALANINE AMINOTRANSFERASE 22 U/L (0-55); ALBUMIN 3.2 GM/DL (3.2-4.5); ALKALINE PHOSPHATASE 86 U/L (40-136); BILIRUBIN,TOTAL 0.6 MG/DL (0.1-1.0); BUN/CREATININE RATIO 7; CALCIUM 8.5 MG/DL (8.5-10.1); CARBON DIOXIDE 29 MMOL/L (21-32); CHLORIDE 102 MMOL/L (98-107); GFR ESTIMATED > 60; GLUCOSE 204 MG/DL (70-105); POTASSIUM 4.3 MMOL/L (3.6-5.0); SODIUM 138 MMOL/L (135-145); TOTAL PROTEIN 6.2 GM/DL (6.4-8.2)
[2017-09-16 10:55] LABS: PLATELET COUNT 1015 10^3/uL (130-400); SMEAR SCAN COMMENT YES
[2017-09-22 13:03] LABS: BASOPHILS # (AUTO) 0.1 10^3/uL (0.0-0.1); BASOPHILS % (AUTO) 1 % (0-10); EOSINOPHILS # (AUTO) 0.1 10^3/uL (0.0-0.3); EOSINOPHILS % (AUTO) 3 % (0-10); HEMATOCRIT 31 % (40-54); HEMOGLOBIN 9.9 G/DL (13.3-17.7); LYMPHOCYTES # (AUTO) 1.7 X 10^3 (1.0-4.0); LYMPHOCYTES % (AUTO) 46 % (12-44); MEAN CORPUSCULAR HEMOGLOBIN 28 PG (25-34); MEAN CORPUSCULAR HGB CONC 32 G/DL (32-36); MEAN CORPUSCULAR VOLUME 88 FL (80-99); MEAN PLATELET VOLUME 9.7 FL (7.4-10.4); MONOCYTES # (AUTO) 0.5 X 10^3 (0.0-1.0); MONOCYTES % (AUTO) 13 % (0-12); NEUTROPHILS # (AUTO) 1.4 X 10^3 (1.8-7.8); NEUTROPHILS % (AUTO) 38 % (42-75); PLATELET COUNT 529 10^3/uL (130-400); RED BLOOD COUNT 3.55 10^6/uL (4.35-5.85); RED CELL DISTRIBUTION WIDTH 16.7 % (10.0-14.5); WHITE BLOOD COUNT 3.7 10^3/uL (4.3-11.0)
[2017-09-22 13:21] LABS: BUN/CREATININE RATIO 14; CALCIUM 8.6 MG/DL (8.5-10.1); CARBON DIOXIDE 30 MMOL/L (21-32); CHLORIDE 103 MMOL/L (98-107); CREATININE SERUM 0.64 MG/DL (0.60-1.30); GFR ESTIMATED > 60; GLUCOSE 132 MG/DL (70-105); SODIUM 138 MMOL/L (135-145)
[2017-09-30 10:30] LABS: BASOPHILS % (AUTO) 0 % (0-10); EOSINOPHILS # (AUTO) 0.1 10^3/uL (0.0-0.3); EOSINOPHILS % (AUTO) 2 % (0-10); HEMATOCRIT 28 % (40-54); HEMOGLOBIN 9.2 G/DL (13.3-17.7); LYMPHOCYTES # (AUTO) 1.1 X 10^3 (1.0-4.0); LYMPHOCYTES % (AUTO) 22 % (12-44); MEAN CORPUSCULAR HEMOGLOBIN 28 PG (25-34); MEAN CORPUSCULAR HGB CONC 32 G/DL (32-36); MEAN CORPUSCULAR VOLUME 86 FL (80-99); MEAN PLATELET VOLUME 9.8 FL (7.4-10.4); MONOCYTES # (AUTO) 0.7 X 10^3 (0.0-1.0); MONOCYTES % (AUTO) 13 % (0-12); NEUTROPHILS # (AUTO) 3.1 X 10^3 (1.8-7.8); NEUTROPHILS % (AUTO) 62 % (42-75); PLATELET COUNT 154 10^3/uL (130-400); RED BLOOD COUNT 3.29 10^6/uL (4.35-5.85); WHITE BLOOD COUNT 4.9 10^3/uL (4.3-11.0)
[2017-09-30 10:50] LABS: ALANINE AMINOTRANSFERASE 36 U/L (0-55); ALBUMIN 3.2 GM/DL (3.2-4.5); ALKALINE PHOSPHATASE 90 U/L (40-136); BILIRUBIN,TOTAL 0.4 MG/DL (0.1-1.0); BUN/CREATININE RATIO 15; CALCIUM 8.6 MG/DL (8.5-10.1); CARBON DIOXIDE 28 MMOL/L (21-32); CHLORIDE 104 MMOL/L (98-107); CREATININE SERUM 0.65 MG/DL (0.60-1.30); GFR ESTIMATED > 60; GLUCOSE 150 MG/DL (70-105); POTASSIUM 3.7 MMOL/L (3.6-5.0); SODIUM 137 MMOL/L (135-145); TOTAL PROTEIN 5.9 GM/DL (6.4-8.2)
[2017-10-14 10:24] LABS: BASOPHILS # (AUTO) 0.1 10^3/uL (0.0-0.1); BASOPHILS % (AUTO) 1 % (0-10); EOSINOPHILS # (AUTO) 0.3 10^3/uL (0.0-0.3); EOSINOPHILS % (AUTO) 3 % (0-10); HEMATOCRIT 29 % (40-54); HEMOGLOBIN 8.8 G/DL (13.3-17.7); LYMPHOCYTES % (AUTO) 24 % (12-44); MEAN CORPUSCULAR HEMOGLOBIN 27 PG (25-34); MEAN CORPUSCULAR HGB CONC 31 G/DL (32-36); MEAN CORPUSCULAR VOLUME 89 FL (80-99); MEAN PLATELET VOLUME 9.3 FL (7.4-10.4); MONOCYTES # (AUTO) 1.7 X 10^3 (0.0-1.0); MONOCYTES % (AUTO) 20 % (0-12); NEUTROPHILS # (AUTO) 4.5 X 10^3 (1.8-7.8); NEUTROPHILS % (AUTO) 53 % (42-75); PLATELET COUNT 955 10^3/uL (130-400); RED BLOOD COUNT 3.22 10^6/uL (4.35-5.85); RED CELL DISTRIBUTION WIDTH 21.8 % (10.0-14.5); WHITE BLOOD COUNT 8.5 10^3/uL (4.3-11.0)
[2017-10-14 10:47] LABS: ALANINE AMINOTRANSFERASE 15 U/L (0-55); ALBUMIN 3.1 GM/DL (3.2-4.5); ALKALINE PHOSPHATASE 81 U/L (40-136); BILIRUBIN,TOTAL 0.4 MG/DL (0.1-1.0); BUN/CREATININE RATIO 18; CALCIUM 8.8 MG/DL (8.5-10.1); CARBON DIOXIDE 30 MMOL/L (21-32); CHLORIDE 103 MMOL/L (98-107); CREATININE SERUM 0.67 MG/DL (0.60-1.30); GFR ESTIMATED > 60; GLUCOSE 98 MG/DL (70-105); POTASSIUM 4.6 MMOL/L (3.6-5.0); SODIUM 140 MMOL/L (135-145)
[2017-10-21 10:24] LABS: BASOPHILS # (AUTO) 0.1 10^3/uL (0.0-0.1); BASOPHILS % (AUTO) 1 % (0-10); EOSINOPHILS # (AUTO) 0.1 10^3/uL (0.0-0.3); EOSINOPHILS % (AUTO) 1 % (0-10); HEMATOCRIT 31 % (40-54); HEMOGLOBIN 9.4 G/DL (13.3-17.7); LYMPHOCYTES # (AUTO) 1.7 X 10^3 (1.0-4.0); LYMPHOCYTES % (AUTO) 29 % (12-44); MEAN CORPUSCULAR HEMOGLOBIN 28 PG (25-34); MEAN CORPUSCULAR HGB CONC 31 G/DL (32-36); MEAN CORPUSCULAR VOLUME 90 FL (80-99); MEAN PLATELET VOLUME 9.1 FL (7.4-10.4); MONOCYTES # (AUTO) 1.1 X 10^3 (0.0-1.0); MONOCYTES % (AUTO) 18 % (0-12); NEUTROPHILS # (AUTO) 3.1 X 10^3 (1.8-7.8); NEUTROPHILS % (AUTO) 51 % (42-75); PLATELET COUNT 603 10^3/uL (130-400); RED BLOOD COUNT 3.41 10^6/uL (4.35-5.85); RED CELL DISTRIBUTION WIDTH 22.8 % (10.0-14.5)
[2017-10-21 10:46] LABS: ALANINE AMINOTRANSFERASE 35 U/L (0-55); ALBUMIN 3.1 GM/DL (3.2-4.5); ALKALINE PHOSPHATASE 80 U/L (40-136); BILIRUBIN,TOTAL 0.4 MG/DL (0.1-1.0); BUN/CREATININE RATIO 18; CALCIUM 8.7 MG/DL (8.5-10.1); CARBON DIOXIDE 26 MMOL/L (21-32); CHLORIDE 104 MMOL/L (98-107); CREATININE SERUM 0.66 MG/DL (0.60-1.30); GFR ESTIMATED > 60; GLUCOSE 112 MG/DL (70-105); SODIUM 139 MMOL/L (135-145); TOTAL PROTEIN 6.1 GM/DL (6.4-8.2)
[2017-10-21 10:48] LABS: SMEAR SCAN COMMENT YES
[2017-10-28 09:55] LABS: BASOPHILS % (AUTO) 1 % (0-10); EOSINOPHILS % (AUTO) 1 % (0-10); HEMATOCRIT 30 % (40-54); HEMOGLOBIN 9.1 G/DL (13.3-17.7); LYMPHOCYTES # (AUTO) 1.5 X 10^3 (1.0-4.0); LYMPHOCYTES % (AUTO) 42 % (12-44); MEAN CORPUSCULAR HEMOGLOBIN 28 PG (25-34); MEAN CORPUSCULAR HGB CONC 31 G/DL (32-36); MEAN CORPUSCULAR VOLUME 92 FL (80-99); MEAN PLATELET VOLUME 9.5 FL (7.4-10.4); MONOCYTES # (AUTO) 0.6 X 10^3 (0.0-1.0); MONOCYTES % (AUTO) 17 % (0-12); NEUTROPHILS # (AUTO) 1.4 X 10^3 (1.8-7.8); NEUTROPHILS % (AUTO) 40 % (42-75); PLATELET COUNT 196 10^3/uL (130-400); RED BLOOD COUNT 3.22 10^6/uL (4.35-5.85); RED CELL DISTRIBUTION WIDTH 25.1 % (10.0-14.5); WHITE BLOOD COUNT 3.6 10^3/uL (4.3-11.0)
[2017-10-28 10:14] LABS: ALANINE AMINOTRANSFERASE 28 U/L (0-55); ALBUMIN 3.1 GM/DL (3.2-4.5); ALKALINE PHOSPHATASE 93 U/L (40-136); BILIRUBIN,TOTAL 0.4 MG/DL (0.1-1.0); BUN/CREATININE RATIO 24; CALCIUM 8.5 MG/DL (8.5-10.1); CARBON DIOXIDE 28 MMOL/L (21-32); CHLORIDE 105 MMOL/L (98-107); CREATININE SERUM 0.66 MG/DL (0.60-1.30); GFR ESTIMATED > 60; GLUCOSE 125 MG/DL (70-105); POTASSIUM 3.9 MMOL/L (3.6-5.0); SODIUM 139 MMOL/L (135-145); TOTAL PROTEIN 5.8 GM/DL (6.4-8.2)
[2017-11-11 10:30] LABS: BASOPHILS # (AUTO) 0.1 10^3/uL (0.0-0.1); BASOPHILS % (AUTO) 1 % (0-10); EOSINOPHILS # (AUTO) 0.3 10^3/uL (0.0-0.3); EOSINOPHILS % (AUTO) 4 % (0-10); HEMATOCRIT 34 % (40-54); HEMOGLOBIN 10.6 G/DL (13.3-17.7); LYMPHOCYTES # (AUTO) 1.5 X 10^3 (1.0-4.0); LYMPHOCYTES % (AUTO) 26 % (12-44); MEAN CORPUSCULAR HEMOGLOBIN 29 PG (25-34); MEAN CORPUSCULAR HGB CONC 31 G/DL (32-36); MEAN CORPUSCULAR VOLUME 95 FL (80-99); MEAN PLATELET VOLUME 9.9 FL (7.4-10.4); MONOCYTES # (AUTO) 1.1 X 10^3 (0.0-1.0); MONOCYTES % (AUTO) 19 % (0-12); NEUTROPHILS # (AUTO) 2.9 X 10^3 (1.8-7.8); NEUTROPHILS % (AUTO) 50 % (42-75); PLATELET COUNT 614 10^3/uL (130-400); RED BLOOD COUNT 3.63 10^6/uL (4.35-5.85); RED CELL DISTRIBUTION WIDTH 24.9 % (10.0-14.5); WHITE BLOOD COUNT 5.8 10^3/uL (4.3-11.0)
[2017-11-11 10:48] LABS: ALANINE AMINOTRANSFERASE 16 U/L (0-55); ALBUMIN 3.3 GM/DL (3.2-4.5); ALKALINE PHOSPHATASE 90 U/L (40-136); BILIRUBIN,TOTAL 0.4 MG/DL (0.1-1.0); BUN/CREATININE RATIO 13; CALCIUM 8.7 MG/DL (8.5-10.1); CARBON DIOXIDE 25 MMOL/L (21-32); CHLORIDE 109 MMOL/L (98-107); CREATININE SERUM 0.64 MG/DL (0.60-1.30); GFR ESTIMATED > 60; GLUCOSE 93 MG/DL (70-105); POTASSIUM 4.4 MMOL/L (3.6-5.0); SODIUM 142 MMOL/L (135-145); TOTAL PROTEIN 6.1 GM/DL (6.4-8.2)
[2017-11-18 10:06] LABS: BASOPHILS # (AUTO) 0.1 10^3/uL (0.0-0.1); BASOPHILS % (AUTO) 2 % (0-10); EOSINOPHILS % (AUTO) 1 % (0-10); HEMATOCRIT 33 % (40-54); HEMOGLOBIN 10.4 G/DL (13.3-17.7); LYMPHOCYTES # (AUTO) 1.4 X 10^3 (1.0-4.0); LYMPHOCYTES % (AUTO) 44 % (12-44); MEAN CORPUSCULAR HGB CONC 31 G/DL (32-36); MEAN CORPUSCULAR VOLUME 94 FL (80-99); MEAN PLATELET VOLUME 9.9 FL (7.4-10.4); MONOCYTES # (AUTO) 0.5 X 10^3 (0.0-1.0); MONOCYTES % (AUTO) 17 % (0-12); NEUTROPHILS # (AUTO) 1.2 X 10^3 (1.8-7.8); NEUTROPHILS % (AUTO) 37 % (42-75); PLATELET COUNT 411 10^3/uL (130-400); RED BLOOD COUNT 3.53 10^6/uL (4.35-5.85); RED CELL DISTRIBUTION WIDTH 23.2 % (10.0-14.5); WHITE BLOOD COUNT 3.2 10^3/uL (4.3-11.0)
[2017-11-18 10:09] LABS: MEAN CORPUSCULAR HEMOGLOBIN 29 PG (25-34)
[2017-11-18 10:20] LABS: BUN/CREATININE RATIO 12; CALCIUM 8.8 MG/DL (8.5-10.1); CARBON DIOXIDE 26 MMOL/L (21-32); CHLORIDE 105 MMOL/L (98-107); CREATININE SERUM 0.68 MG/DL (0.60-1.30); GFR ESTIMATED > 60; GLUCOSE 102 MG/DL (70-105); POTASSIUM 3.9 MMOL/L (3.6-5.0); SODIUM 140 MMOL/L (135-145)
[2017-11-25 10:07] LABS: BASOPHILS % (AUTO) 1 % (0-10); EOSINOPHILS % (AUTO) 1 % (0-10); HEMATOCRIT 32 % (40-54); HEMOGLOBIN 10.1 G/DL (13.3-17.7); LYMPHOCYTES # (AUTO) 1.1 X 10^3 (1.0-4.0); LYMPHOCYTES % (AUTO) 54 % (12-44); MEAN CORPUSCULAR HEMOGLOBIN 30 PG (25-34); MEAN CORPUSCULAR HGB CONC 32 G/DL (32-36); MEAN CORPUSCULAR VOLUME 93 FL (80-99); MEAN PLATELET VOLUME 9.5 FL (7.4-10.4); MONOCYTES # (AUTO) 0.2 X 10^3 (0.0-1.0); MONOCYTES % (AUTO) 11 % (0-12); NEUTROPHILS # (AUTO) 0.7 X 10^3 (1.8-7.8); NEUTROPHILS % (AUTO) 33 % (42-75); PLATELET COUNT 127 10^3/uL (130-400); RED BLOOD COUNT 3.39 10^6/uL (4.35-5.85)
[2017-11-25 10:28] LABS: ALANINE AMINOTRANSFERASE 29 U/L (0-55); ALBUMIN 3.3 GM/DL (3.2-4.5); ALKALINE PHOSPHATASE 70 U/L (40-136); BILIRUBIN,TOTAL 0.4 MG/DL (0.1-1.0); BUN/CREATININE RATIO 13; CALCIUM 8.6 MG/DL (8.5-10.1); CARBON DIOXIDE 26 MMOL/L (21-32); CHLORIDE 110 MMOL/L (98-107); CREATININE SERUM 0.68 MG/DL (0.60-1.30); GFR ESTIMATED > 60; GLUCOSE 94 MG/DL (70-105); POTASSIUM 3.7 MMOL/L (3.6-5.0); SODIUM 145 MMOL/L (135-145); TOTAL PROTEIN 5.8 GM/DL (6.4-8.2)
[~2017-12-09] VITALS: Ht 174 cm; Wt 60.3 kg
[~2017-12-09 09:45] MED LIST changes: +CTR IV SCH; +GEMCITABINE HCL (GENERIC) 1,000 MG, GEMCITABINE HCL (GENERIC) 700 MG in NS (IVPB) CANCE... IV SCH; +NS (IVPB) CANCER CENTER 250 ML ONE; +NS IV 1000 ML (CANCER CTR) IV SCH; +NS IV 500 ML (CANCER CENTER) 500 ML ONE; +ONDANSETRON MDV (CANCER CENTER 16 MG, DEXAMETHASONE PF INJ (CANCER C 10 MG in NS (IVPB)... IV SCH; +PACLITAXEL PROTEIN IV SCH; +PACLitaxel PROTEIN 200 MG in EMPTY IV BAG (PVC) CANCER CTR 1 EA IV SCH
[2017-12-09 10:17] LABS: BASOPHILS # (AUTO) 0.1 10^3/uL (0.0-0.1); BASOPHILS % (AUTO) 1 % (0-10); EOSINOPHILS # (AUTO) 0.3 10^3/uL (0.0-0.3); EOSINOPHILS % (AUTO) 4 % (0-10); HEMATOCRIT 37 % (40-54); HEMOGLOBIN 11.7 G/DL (13.3-17.7); LYMPHOCYTES # (AUTO) 2.1 X 10^3 (1.0-4.0); LYMPHOCYTES % (AUTO) 28 % (12-44); MEAN CORPUSCULAR HEMOGLOBIN 30 PG (25-34); MEAN CORPUSCULAR HGB CONC 31 G/DL (32-36); MEAN CORPUSCULAR VOLUME 94 FL (80-99); MEAN PLATELET VOLUME 10.4 FL (7.4-10.4); MONOCYTES # (AUTO) 1.4 X 10^3 (0.0-1.0); MONOCYTES % (AUTO) 19 % (0-12); NEUTROPHILS # (AUTO) 3.5 X 10^3 (1.8-7.8); NEUTROPHILS % (AUTO) 49 % (42-75); PLATELET COUNT 539 10^3/uL (130-400); RED BLOOD COUNT 3.96 10^6/uL (4.35-5.85); RED CELL DISTRIBUTION WIDTH 22.1 % (10.0-14.5); WHITE BLOOD COUNT 7.3 10^3/uL (4.3-11.0)
[2017-12-09 10:39] LABS: ALANINE AMINOTRANSFERASE 22 U/L (0-55); ALBUMIN 3.5 GM/DL (3.2-4.5); ALKALINE PHOSPHATASE 71 U/L (40-136); BILIRUBIN,TOTAL 0.3 MG/DL (0.1-1.0); BUN/CREATININE RATIO 26; CALCIUM 9.1 MG/DL (8.5-10.1); CARBON DIOXIDE 29 MMOL/L (21-32); CHLORIDE 104 MMOL/L (98-107); CREATININE SERUM 0.78 MG/DL (0.60-1.30); GFR ESTIMATED > 60; GLUCOSE 85 MG/DL (70-105); POTASSIUM 4.3 MMOL/L (3.6-5.0); SODIUM 140 MMOL/L (135-145); TOTAL PROTEIN 6.7 GM/DL (6.4-8.2)
== END 2017-12-15 | disposition home or self-care (01) ==
LOC: ONC 09:45
PROVIDERS: ATTEND Internal Medicine Hematology & Oncology
DX: Z51.11 Encounter for antineoplastic chemotherapy (principal); C25.0 Malignant neoplasm of head of pancreas; D47.3 Essential (hemorrhagic) thrombocythemia; J44.9 Chronic obstructive pulmonary disease, unspecified; I73.9 Peripheral vascular disease, unspecified; Z87.891 Personal history of nicotine dependence; Z79.899 Other long term (current) drug therapy
CPT/HCPCS: 36591; 80048; 80053; 82728; 83540; 85025; 86301; 96375; 96413; 96417

== ENCOUNTER → 2018-02-07 | Outpatient (CLI) | payer MEDICARE, MEDICAID ==
[~2018-02-07] MED LIST changes: +BARIUM SUSPENSION 2.1% (VANILLA SILQ) 450 ML PO ONE; -CTR IV SCH; -GEMCITABINE HCL (GENERIC) 1,000 MG, GEMCITABINE HCL (GENERIC) 700 MG in NS (IVPB) CANCE... IV SCH; +IOHEXOL 350 MG/ML 100 ML (OMNIPAQUE 350) VIAL IV ONE; -NS (IVPB) CANCER CENTER 250 ML ONE; +NS 250 ML (IVPB) BAG IV ONE; -NS IV 1000 ML (CANCER CTR) IV SCH; -NS IV 500 ML (CANCER CENTER) 500 ML ONE; -ONDANSETRON MDV (CANCER CENTER 16 MG, DEXAMETHASONE PF INJ (CANCER C 10 MG in NS (IVPB)... IV SCH; -PACLITAXEL PROTEIN IV SCH; -PACLitaxel PROTEIN 200 MG in EMPTY IV BAG (PVC) CANCER CTR 1 EA IV SCH
--- NOTE | 2018-02-07 14:07 | Diagnostic Imaging Report ---
PROCEDURE: CT chest with contrast, CT abdomen and pelvis with and without contrast. TECHNIQUE: Pre and post intravenous contrast axial imaging of the abdomen and pelvis and post contrast axial imaging of the chest were performed. INDICATION: Pancreatic cancer. Comparison is made with prior CT chest from 06/14/[address] abdomen and pelvis performed 05/25/2017. CT chest: FINDINGS: Left chest wall port has its tip in the right atrium. No axillary lymphadenopathy is seen. No mediastinal or hilar lymphadenopathy is detected. No pericardial or pleural fluid is identified. Centrilobular emphysematous changes are noted. There is irregular density in the superior segment of the left lower lobe measuring 5 mm, indeterminate. Additional tiny densities in the superior segment of left lower lobe are also present. Tiny indeterminate densities in the left lower lobe are seen, similar to prior exam. These areas may represent scarring. No infiltrate is identified. IMPRESSION: Emphysematous changes. No thoracic lymphadenopathy is seen. Indeterminate ill-defined nodular densities are seen which may represent areas of scarring. Continued followup is recommended. CT abdomen and pelvis: FINDINGS: Pneumobilia is present. No discrete liver mass is detected. The gallbladder is normal size. There is a small amount of perihepatic fluid present. Common duct stent remains in place. There is some dilatation of the pancreatic duct. There is some residual low density in the region of the uncinate of the pancreas measuring approximately 2.0 x 1.6 cm, perhaps some residual mass. Pancreatic body and tail are atrophic. The spleen is unremarkable. No adrenal mass is identified. The kidneys are stable. Aorta is calcified but nonaneurysmal. Peripherally calcified cystic mass in the right abdomen appears stable. No central retroperitoneal or mesenteric lymphadenopathy is seen. Bowel loops are normal caliber. The bladder and prostate are unremarkable. IMPRESSION: Stable to improved appearance to the abdomen and pelvis when compared with prior CT from 05/25/2017. Pancreatic mass appears to be smaller and less prominent. No abdominal or pelvic lymphadenopathy is detected. No liver mass is seen. There is some trace fluid around the liver. Dictated by: Dictated on workstation # [id number]
== END ==
LOC: RAD 12:13
PROVIDERS: ATTEND Internal Medicine Hematology & Oncology
DX: C25.9 Malignant neoplasm of pancreas, unspecified (principal); J43.9 Emphysema, unspecified; R91.8 Other nonspecific abnormal finding of lung field
CPT/HCPCS: 71260; 74178

== ENCOUNTER 2018-03-10 10:08 | Outpatient (RCR) | payer OTHER, MEDICAID ==
[2017-12-16 10:27] LABS: BASOPHILS # (AUTO) 0.1 10^3/uL (0.0-0.1); BASOPHILS % (AUTO) 1 % (0-10); EOSINOPHILS # (AUTO) 0.1 10^3/uL (0.0-0.3); EOSINOPHILS % (AUTO) 2 % (0-10); HEMATOCRIT 35 % (40-54); HEMOGLOBIN 11.4 G/DL (13.3-17.7); LYMPHOCYTES # (AUTO) 1.7 X 10^3 (1.0-4.0); LYMPHOCYTES % (AUTO) 44 % (12-44); MEAN CORPUSCULAR HEMOGLOBIN 30 PG (25-34); MEAN CORPUSCULAR HGB CONC 33 G/DL (32-36); MEAN CORPUSCULAR VOLUME 93 FL (80-99); MEAN PLATELET VOLUME 10.6 FL (7.4-10.4); MONOCYTES # (AUTO) 0.8 X 10^3 (0.0-1.0); MONOCYTES % (AUTO) 21 % (0-12); NEUTROPHILS # (AUTO) 1.2 X 10^3 (1.8-7.8); NEUTROPHILS % (AUTO) 31 % (42-75); PLATELET COUNT 273 10^3/uL (130-400); RED BLOOD COUNT 3.77 10^6/uL (4.35-5.85); RED CELL DISTRIBUTION WIDTH 20.8 % (10.0-14.5); WHITE BLOOD COUNT 3.8 10^3/uL (4.3-11.0)
[2017-12-16 10:45] LABS: BUN/CREATININE RATIO 16; CALCIUM 8.8 MG/DL (8.5-10.1); CARBON DIOXIDE 27 MMOL/L (21-32); CHLORIDE 106 MMOL/L (98-107); GFR ESTIMATED > 60; GLUCOSE 134 MG/DL (70-105); POTASSIUM 4.1 MMOL/L (3.6-5.0); SODIUM 140 MMOL/L (135-145)
[2017-12-23 10:30] LABS: BASOPHILS % (AUTO) 1 % (0-10); EOSINOPHILS % (AUTO) 2 % (0-10); HEMATOCRIT 34 % (40-54); HEMOGLOBIN 11.2 G/DL (13.3-17.7); LYMPHOCYTES # (AUTO) 1.4 X 10^3 (1.0-4.0); LYMPHOCYTES % (AUTO) 58 % (12-44); MEAN CORPUSCULAR HEMOGLOBIN 30 PG (25-34); MEAN CORPUSCULAR HGB CONC 33 G/DL (32-36); MEAN CORPUSCULAR VOLUME 91 FL (80-99); MEAN PLATELET VOLUME 10.5 FL (7.4-10.4); MONOCYTES # (AUTO) 0.2 X 10^3 (0.0-1.0); MONOCYTES % (AUTO) 8 % (0-12); NEUTROPHILS # (AUTO) 0.8 X 10^3 (1.8-7.8); NEUTROPHILS % (AUTO) 32 % (42-75); PLATELET COUNT 102 10^3/uL (130-400); RED BLOOD COUNT 3.76 10^6/uL (4.35-5.85); RED CELL DISTRIBUTION WIDTH 20.1 % (10.0-14.5); WHITE BLOOD COUNT 2.5 10^3/uL (4.3-11.0)
[2017-12-23 10:46] LABS: BUN/CREATININE RATIO 15; CALCIUM 8.8 MG/DL (8.5-10.1); CARBON DIOXIDE 22 MMOL/L (21-32); CHLORIDE 110 MMOL/L (98-107); CREATININE SERUM 0.79 MG/DL (0.60-1.30); GFR ESTIMATED > 60; GLUCOSE 101 MG/DL (70-105); POTASSIUM 3.7 MMOL/L (3.6-5.0); SODIUM 141 MMOL/L (135-145)
[2018-01-06 09:34] LABS: BASOPHILS # (AUTO) 0.1 10^3/uL (0.0-0.1); BASOPHILS % (AUTO) 1 % (0-10); EOSINOPHILS # (AUTO) 0.2 10^3/uL (0.0-0.3); EOSINOPHILS % (AUTO) 4 % (0-10); HEMATOCRIT 37 % (40-54); HEMOGLOBIN 11.6 G/DL (13.3-17.7); LYMPHOCYTES % (AUTO) 33 % (12-44); MEAN CORPUSCULAR HEMOGLOBIN 29 PG (25-34); MEAN CORPUSCULAR HGB CONC 32 G/DL (32-36); MEAN CORPUSCULAR VOLUME 92 FL (80-99); MEAN PLATELET VOLUME 10.5 FL (7.4-10.4); MONOCYTES % (AUTO) 17 % (0-12); NEUTROPHILS # (AUTO) 2.7 X 10^3 (1.8-7.8); NEUTROPHILS % (AUTO) 45 % (42-75); PLATELET COUNT 463 10^3/uL (130-400); RED BLOOD COUNT 3.95 10^6/uL (4.35-5.85); RED CELL DISTRIBUTION WIDTH 20.3 % (10.0-14.5); WHITE BLOOD COUNT 5.9 10^3/uL (4.3-11.0)
[2018-01-06 09:51] LABS: ALANINE AMINOTRANSFERASE 19 U/L (0-55); ALBUMIN 3.5 GM/DL (3.2-4.5); ALKALINE PHOSPHATASE 88 U/L (40-136); BILIRUBIN,TOTAL 0.3 MG/DL (0.1-1.0); BUN/CREATININE RATIO 28; CALCIUM 9.3 MG/DL (8.5-10.1); CARBON DIOXIDE 28 MMOL/L (21-32); CHLORIDE 104 MMOL/L (98-107); GFR ESTIMATED > 60; GLUCOSE 93 MG/DL (70-105); POTASSIUM 4.4 MMOL/L (3.6-5.0); SODIUM 141 MMOL/L (135-145); TOTAL PROTEIN 6.6 GM/DL (6.4-8.2)
[2018-01-13 10:56] LABS: BASOPHILS % (AUTO) 1 % (0-10); EOSINOPHILS # (AUTO) 0.1 10^3/uL (0.0-0.3); EOSINOPHILS % (AUTO) 2 % (0-10); HEMATOCRIT 35 % (40-54); HEMOGLOBIN 11.7 G/DL (13.3-17.7); LYMPHOCYTES # (AUTO) 1.7 X 10^3 (1.0-4.0); LYMPHOCYTES % (AUTO) 41 % (12-44); MEAN CORPUSCULAR HEMOGLOBIN 30 PG (25-34); MEAN CORPUSCULAR HGB CONC 33 G/DL (32-36); MEAN CORPUSCULAR VOLUME 91 FL (80-99); MEAN PLATELET VOLUME 11.4 FL (7.4-10.4); MONOCYTES # (AUTO) 0.7 X 10^3 (0.0-1.0); MONOCYTES % (AUTO) 17 % (0-12); NEUTROPHILS # (AUTO) 1.6 X 10^3 (1.8-7.8); NEUTROPHILS % (AUTO) 40 % (42-75); PLATELET COUNT 234 10^3/uL (130-400)
[2018-01-13 11:13] LABS: BUN/CREATININE RATIO 26; CALCIUM 9.1 MG/DL (8.5-10.1); CARBON DIOXIDE 27 MMOL/L (21-32); CHLORIDE 107 MMOL/L (98-107); CREATININE SERUM 0.78 MG/DL (0.60-1.30); GFR ESTIMATED > 60; GLUCOSE 88 MG/DL (70-105); POTASSIUM 4.2 MMOL/L (3.6-5.0); SODIUM 140 MMOL/L (135-145)
[2018-01-20 10:45] LABS: BASOPHILS % (AUTO) 0 % (0-10); EOSINOPHILS % (AUTO) 1 % (0-10); HEMATOCRIT 34 % (40-54); LYMPHOCYTES # (AUTO) 1.7 X 10^3 (1.0-4.0); LYMPHOCYTES % (AUTO) 52 % (12-44); MEAN CORPUSCULAR HEMOGLOBIN 30 PG (25-34); MEAN CORPUSCULAR HGB CONC 33 G/DL (32-36); MEAN CORPUSCULAR VOLUME 91 FL (80-99); MEAN PLATELET VOLUME 9.5 FL (7.4-10.4); MONOCYTES # (AUTO) 0.3 X 10^3 (0.0-1.0); MONOCYTES % (AUTO) 8 % (0-12); NEUTROPHILS # (AUTO) 1.3 X 10^3 (1.8-7.8); NEUTROPHILS % (AUTO) 38 % (42-75); PLATELET COUNT 93 10^3/uL (130-400); RED BLOOD COUNT 3.72 10^6/uL (4.35-5.85); RED CELL DISTRIBUTION WIDTH 19.3 % (10.0-14.5); WHITE BLOOD COUNT 3.3 10^3/uL (4.3-11.0)
[2018-01-20 11:00] LABS: BUN/CREATININE RATIO 25; CARBON DIOXIDE 28 MMOL/L (21-32); CHLORIDE 106 MMOL/L (98-107); CREATININE SERUM 0.84 MG/DL (0.60-1.30); GFR ESTIMATED > 60; GLUCOSE 88 MG/DL (70-105); POTASSIUM 4.3 MMOL/L (3.6-5.0); SODIUM 141 MMOL/L (135-145)
[2018-02-03 10:31] LABS: BASOPHILS % (AUTO) 1 % (0-10); EOSINOPHILS # (AUTO) 0.3 10^3/uL (0.0-0.3); EOSINOPHILS % (AUTO) 4 % (0-10); HEMATOCRIT 37 % (40-54); HEMOGLOBIN 11.8 G/DL (13.3-17.7); LYMPHOCYTES # (AUTO) 1.6 X 10^3 (1.0-4.0); LYMPHOCYTES % (AUTO) 26 % (12-44); MEAN CORPUSCULAR HEMOGLOBIN 30 PG (25-34); MEAN CORPUSCULAR HGB CONC 32 G/DL (32-36); MEAN CORPUSCULAR VOLUME 92 FL (80-99); MEAN PLATELET VOLUME 10.8 FL (7.4-10.4); MONOCYTES # (AUTO) 1.1 X 10^3 (0.0-1.0); MONOCYTES % (AUTO) 17 % (0-12); NEUTROPHILS # (AUTO) 3.3 X 10^3 (1.8-7.8); NEUTROPHILS % (AUTO) 53 % (42-75); PLATELET COUNT 464 10^3/uL (130-400); RED BLOOD COUNT 3.98 10^6/uL (4.35-5.85); RED CELL DISTRIBUTION WIDTH 19.3 % (10.0-14.5); WHITE BLOOD COUNT 6.3 10^3/uL (4.3-11.0)
[2018-02-03 10:50] LABS: ALANINE AMINOTRANSFERASE 17 U/L (0-55); ALBUMIN 2.9 GM/DL (3.2-4.5); ALKALINE PHOSPHATASE 65 U/L (40-136); BILIRUBIN,TOTAL 0.3 MG/DL (0.1-1.0); BUN/CREATININE RATIO 21; CALCIUM 7.8 MG/DL (8.5-10.1); CARBON DIOXIDE 22 MMOL/L (21-32); CHLORIDE 113 MMOL/L (98-107); CREATININE SERUM 0.76 MG/DL (0.60-1.30); GFR ESTIMATED > 60; GLUCOSE 112 MG/DL (70-105); POTASSIUM 3.6 MMOL/L (3.6-5.0); SODIUM 141 MMOL/L (135-145); TOTAL PROTEIN 5.6 GM/DL (6.4-8.2)
[2018-02-10 10:37] LABS: BASOPHILS # (AUTO) 0.1 10^3/uL (0.0-0.1); BASOPHILS % (AUTO) 1 % (0-10); EOSINOPHILS # (AUTO) 0.2 10^3/uL (0.0-0.3); EOSINOPHILS % (AUTO) 3 % (0-10); HEMATOCRIT 37 % (40-54); LYMPHOCYTES # (AUTO) 1.9 X 10^3 (1.0-4.0); LYMPHOCYTES % (AUTO) 25 % (12-44); MEAN CORPUSCULAR HEMOGLOBIN 29 PG (25-34); MEAN CORPUSCULAR HGB CONC 32 G/DL (32-36); MEAN CORPUSCULAR VOLUME 91 FL (80-99); MONOCYTES # (AUTO) 1.1 X 10^3 (0.0-1.0); MONOCYTES % (AUTO) 14 % (0-12); NEUTROPHILS # (AUTO) 4.5 X 10^3 (1.8-7.8); NEUTROPHILS % (AUTO) 58 % (42-75); PLATELET COUNT 287 10^3/uL (130-400); RED BLOOD COUNT 4.09 10^6/uL (4.35-5.85); RED CELL DISTRIBUTION WIDTH 18.7 % (10.0-14.5); WHITE BLOOD COUNT 7.7 10^3/uL (4.3-11.0)
[2018-02-10 10:58] LABS: ALANINE AMINOTRANSFERASE 20 U/L (0-55); ALBUMIN 3.7 GM/DL (3.2-4.5); ALKALINE PHOSPHATASE 67 U/L (40-136); BILIRUBIN,TOTAL 0.3 MG/DL (0.1-1.0); BUN/CREATININE RATIO 25; CALCIUM 9.2 MG/DL (8.5-10.1); CARBON DIOXIDE 27 MMOL/L (21-32); CHLORIDE 106 MMOL/L (98-107); CREATININE SERUM 0.84 MG/DL (0.60-1.30); GFR ESTIMATED > 60; GLUCOSE 111 MG/DL (70-105); SODIUM 141 MMOL/L (135-145); TOTAL PROTEIN 6.8 GM/DL (6.4-8.2)
[2018-02-17 10:24] LABS: BASOPHILS # (AUTO) 0.1 10^3/uL (0.0-0.1); BASOPHILS % (AUTO) 2 % (0-10); EOSINOPHILS # (AUTO) 0.1 10^3/uL (0.0-0.3); EOSINOPHILS % (AUTO) 2 % (0-10); HEMATOCRIT 33 % (40-54); HEMOGLOBIN 11.3 G/DL (13.3-17.7); LYMPHOCYTES # (AUTO) 1.6 X 10^3 (1.0-4.0); LYMPHOCYTES % (AUTO) 50 % (12-44); MEAN CORPUSCULAR HEMOGLOBIN 30 PG (25-34); MEAN CORPUSCULAR HGB CONC 34 G/DL (32-36); MEAN CORPUSCULAR VOLUME 89 FL (80-99); MEAN PLATELET VOLUME 10.4 FL (7.4-10.4); MONOCYTES # (AUTO) 0.5 X 10^3 (0.0-1.0); MONOCYTES % (AUTO) 14 % (0-12); NEUTROPHILS # (AUTO) 1.1 X 10^3 (1.8-7.8); NEUTROPHILS % (AUTO) 33 % (42-75); PLATELET COUNT 128 10^3/uL (130-400); RED BLOOD COUNT 3.76 10^6/uL (4.35-5.85); RED CELL DISTRIBUTION WIDTH 17.2 % (10.0-14.5); WHITE BLOOD COUNT 3.3 10^3/uL (4.3-11.0)
[2018-02-17 10:41] LABS: BUN/CREATININE RATIO 18; CALCIUM 9.3 MG/DL (8.5-10.1); CARBON DIOXIDE 24 MMOL/L (21-32); CHLORIDE 107 MMOL/L (98-107); CREATININE SERUM 1.02 MG/DL (0.60-1.30); GFR ESTIMATED > 60; GLUCOSE 97 MG/DL (70-105); POTASSIUM 3.7 MMOL/L (3.6-5.0); SODIUM 141 MMOL/L (135-145)
[2018-02-24 10:14] LABS: BASOPHILS % (AUTO) 1 % (0-10); EOSINOPHILS % (AUTO) 2 % (0-10); HEMATOCRIT 33 % (40-54); HEMOGLOBIN 10.8 G/DL (13.3-17.7); LYMPHOCYTES # (AUTO) 1.1 X 10^3 (1.0-4.0); LYMPHOCYTES % (AUTO) 43 % (12-44); MEAN CORPUSCULAR HEMOGLOBIN 29 PG (25-34); MEAN CORPUSCULAR HGB CONC 33 G/DL (32-36); MEAN CORPUSCULAR VOLUME 89 FL (80-99); MEAN PLATELET VOLUME 10.2 FL (7.4-10.4); MONOCYTES # (AUTO) 0.2 X 10^3 (0.0-1.0); MONOCYTES % (AUTO) 8 % (0-12); NEUTROPHILS # (AUTO) 1.2 X 10^3 (1.8-7.8); NEUTROPHILS % (AUTO) 47 % (42-75); PLATELET COUNT 85 10^3/uL (130-400); RED BLOOD COUNT 3.68 10^6/uL (4.35-5.85); RED CELL DISTRIBUTION WIDTH 17.4 % (10.0-14.5); WHITE BLOOD COUNT 2.6 10^3/uL (4.3-11.0)
[2018-02-24 10:26] LABS: BUN/CREATININE RATIO 18; CARBON DIOXIDE 25 MMOL/L (21-32); CHLORIDE 103 MMOL/L (98-107); CREATININE SERUM 1.05 MG/DL (0.60-1.30); GFR ESTIMATED > 60; GLUCOSE 189 MG/DL (70-105); POTASSIUM 3.9 MMOL/L (3.6-5.0); SODIUM 136 MMOL/L (135-145)
[~2018-03-10] VITALS: Ht 174 cm; Wt 63.0 kg
[~2018-03-10 10:08] MED LIST changes: -BARIUM SUSPENSION 2.1% (VANILLA SILQ) 450 ML PO ONE; +GEMCITABINE HCL (GENERIC) 1,000 MG, GEMCITABINE HCL (GENERIC) 700 MG in NS (IVPB) CANCE... IV SCH; -IOHEXOL 350 MG/ML 100 ML (OMNIPAQUE 350) VIAL IV ONE; -NS 250 ML (IVPB) BAG IV ONE; +NS IV 1000 ML (CANCER CTR) IV SCH; +NS IV 500 ML (CANCER CENTER) 500 ML IV SCH; +NS IV 500 ML (CANCER CENTER) 500 ML ONE; +ONDANSETRON MDV (CANCER CENTER 16 MG, DEXAMETHASONE PF INJ (CANCER C 10 MG in NS (IVPB)... IV SCH
[2018-03-10 10:27] LABS: BASOPHILS % (AUTO) 1 % (0-10); EOSINOPHILS # (AUTO) 0.2 10^3/uL (0.0-0.3); EOSINOPHILS % (AUTO) 4 % (0-10); HEMATOCRIT 35 % (40-54); HEMOGLOBIN 11.7 G/DL (13.3-17.7); LYMPHOCYTES # (AUTO) 1.9 X 10^3 (1.0-4.0); LYMPHOCYTES % (AUTO) 30 % (12-44); MEAN CORPUSCULAR HEMOGLOBIN 30 PG (25-34); MEAN CORPUSCULAR HGB CONC 33 G/DL (32-36); MEAN CORPUSCULAR VOLUME 91 FL (80-99); MEAN PLATELET VOLUME 10.2 FL (7.4-10.4); MONOCYTES # (AUTO) 0.9 X 10^3 (0.0-1.0); MONOCYTES % (AUTO) 14 % (0-12); NEUTROPHILS # (AUTO) 3.2 X 10^3 (1.8-7.8); NEUTROPHILS % (AUTO) 52 % (42-75); PLATELET COUNT 463 10^3/uL (130-400); RED BLOOD COUNT 3.85 10^6/uL (4.35-5.85); RED CELL DISTRIBUTION WIDTH 18.7 % (10.0-14.5); WHITE BLOOD COUNT 6.2 10^3/uL (4.3-11.0)
[2018-03-10 10:47] LABS: ALANINE AMINOTRANSFERASE 22 U/L (0-55); ALBUMIN 3.6 GM/DL (3.2-4.5); ALKALINE PHOSPHATASE 76 U/L (40-136); BILIRUBIN,TOTAL 0.4 MG/DL (0.1-1.0); BUN/CREATININE RATIO 23; CARBON DIOXIDE 24 MMOL/L (21-32); CHLORIDE 106 MMOL/L (98-107); CREATININE SERUM 1.01 MG/DL (0.60-1.30); GFR ESTIMATED > 60; GLUCOSE 135 MG/DL (70-105); POTASSIUM 4.3 MMOL/L (3.6-5.0); SODIUM 137 MMOL/L (135-145); TOTAL PROTEIN 6.7 GM/DL (6.4-8.2)
== END 2018-03-16 | disposition home or self-care (01) ==
LOC: ONC 10:08
PROVIDERS: ATTEND Internal Medicine Hematology & Oncology
DX: Z51.11 Encounter for antineoplastic chemotherapy (principal); C25.0 Malignant neoplasm of head of pancreas; D47.3 Essential (hemorrhagic) thrombocythemia; J44.9 Chronic obstructive pulmonary disease, unspecified; I73.9 Peripheral vascular disease, unspecified; Z87.891 Personal history of nicotine dependence; Z79.899 Other long term (current) drug therapy
CPT/HCPCS: 36591; 80048; 80053; 85025; 86301; 96375; 96413

== ENCOUNTER 2018-03-17 10:11 | Outpatient (RCR) | payer MEDICARE, MEDICAID ==
[~2018-03-17 10:11] MED LIST changes: -NS IV 1000 ML (CANCER CTR) IV SCH; -NS IV 500 ML (CANCER CENTER) 500 ML ONE
[2018-03-17 10:27] LABS: BASOPHILS % (AUTO) 1 % (0-10); EOSINOPHILS # (AUTO) 0.1 10^3/uL (0.0-0.3); EOSINOPHILS % (AUTO) 2 % (0-10); HEMATOCRIT 33 % (40-54); HEMOGLOBIN 11.2 G/DL (13.3-17.7); LYMPHOCYTES # (AUTO) 1.5 X 10^3 (1.0-4.0); LYMPHOCYTES % (AUTO) 48 % (12-44); MEAN CORPUSCULAR HEMOGLOBIN 30 PG (25-34); MEAN CORPUSCULAR HGB CONC 34 G/DL (32-36); MEAN CORPUSCULAR VOLUME 90 FL (80-99); MEAN PLATELET VOLUME 11.3 FL (7.4-10.4); MONOCYTES # (AUTO) 0.4 X 10^3 (0.0-1.0); MONOCYTES % (AUTO) 12 % (0-12); NEUTROPHILS # (AUTO) 1.2 X 10^3 (1.8-7.8); NEUTROPHILS % (AUTO) 38 % (42-75); PLATELET COUNT 176 10^3/uL (130-400); RED BLOOD COUNT 3.68 10^6/uL (4.35-5.85); RED CELL DISTRIBUTION WIDTH 17.6 % (10.0-14.5); WHITE BLOOD COUNT 3.2 10^3/uL (4.3-11.0)
[2018-03-17 10:44] LABS: BUN/CREATININE RATIO 13; CALCIUM 8.4 MG/DL (8.5-10.1); CARBON DIOXIDE 22 MMOL/L (21-32); CHLORIDE 109 MMOL/L (98-107); CREATININE SERUM 0.88 MG/DL (0.60-1.30); GFR ESTIMATED > 60; GLUCOSE 104 MG/DL (70-105); POTASSIUM 3.8 MMOL/L (3.6-5.0); SODIUM 140 MMOL/L (135-145)
== END 2018-03-26 | disposition home or self-care (01) ==
LOC: ONC 10:11
PROVIDERS: ATTEND Internal Medicine Hematology & Oncology
DX: Z51.11 Encounter for antineoplastic chemotherapy (principal); C25.0 Malignant neoplasm of head of pancreas; D47.3 Essential (hemorrhagic) thrombocythemia; J44.9 Chronic obstructive pulmonary disease, unspecified; I73.9 Peripheral vascular disease, unspecified; Z87.891 Personal history of nicotine dependence; Z79.899 Other long term (current) drug therapy
CPT/HCPCS: 36591; 80048; 85025; 96375; 96413

== ENCOUNTER 2018-03-31 10:15 | Outpatient (RCR) | payer MEDICARE, MEDICAID ==
[~2018-03-31] VITALS: Ht 174 cm; Wt 61.7 kg
[2018-03-31 10:43] LABS: BASOPHILS % (AUTO) 0 % (0-10); EOSINOPHILS # (AUTO) 0.3 10^3/uL (0.0-0.3); EOSINOPHILS % (AUTO) 5 % (0-10); HEMATOCRIT 31 % (40-54); HEMOGLOBIN 9.8 G/DL (13.3-17.7); LYMPHOCYTES # (AUTO) 1.3 X 10^3 (1.0-4.0); LYMPHOCYTES % (AUTO) 26 % (12-44); MEAN CORPUSCULAR HEMOGLOBIN 30 PG (25-34); MEAN CORPUSCULAR HGB CONC 32 G/DL (32-36); MEAN CORPUSCULAR VOLUME 92 FL (80-99); MEAN PLATELET VOLUME 9.6 FL (7.4-10.4); MONOCYTES % (AUTO) 19 % (0-12); NEUTROPHILS # (AUTO) 2.4 X 10^3 (1.8-7.8); NEUTROPHILS % (AUTO) 49 % (42-75); PLATELET COUNT 543 10^3/uL (130-400); RED BLOOD COUNT 3.32 10^6/uL (4.35-5.85); RED CELL DISTRIBUTION WIDTH 17.6 % (10.0-14.5)
[2018-03-31 11:08] LABS: ALANINE AMINOTRANSFERASE 18 U/L (0-55); ALBUMIN 3.3 GM/DL (3.2-4.5); ALKALINE PHOSPHATASE 69 U/L (40-136); BILIRUBIN,TOTAL 0.2 MG/DL (0.1-1.0); BUN/CREATININE RATIO 17; CALCIUM 8.8 MG/DL (8.5-10.1); CARBON DIOXIDE 26 MMOL/L (21-32); CHLORIDE 109 MMOL/L (98-107); CREATININE SERUM 0.88 MG/DL (0.60-1.30); GFR ESTIMATED > 60; GLUCOSE 142 MG/DL (70-105); POTASSIUM 3.9 MMOL/L (3.6-5.0); SODIUM 142 MMOL/L (135-145); TOTAL PROTEIN 6.3 GM/DL (6.4-8.2)
[2018-03-31] MEDS ORDERED: [UNRECOGNIZED DRUG - OTHER] IV SCH (11:15)
[2018-03-31] MEDS ORDERED: PACLitaxel PROTEIN 150 MG in EMPTY IV BAG (PVC) CANCER CTR 1 EA IV SCH (11:15)
[2018-03-31] MEDS ORDERED: GEMCITABINE HCL IV SCH (11:15)
== END 2018-04-03 15:18 | disposition home or self-care (01) ==
LOC: ONC 10:15
PROVIDERS: ATTEND Internal Medicine Hematology & Oncology
DX: Z51.11 Encounter for antineoplastic chemotherapy (principal); C25.0 Malignant neoplasm of head of pancreas; D47.3 Essential (hemorrhagic) thrombocythemia; J43.9 Emphysema, unspecified; I73.9 Peripheral vascular disease, unspecified; Z87.891 Personal history of nicotine dependence; Z79.899 Other long term (current) drug therapy
CPT/HCPCS: 36591; 80053; 85025; 86301; 96375; 96413; 96417

== ENCOUNTER → 2018-06-13 | Outpatient (CLI) | payer MEDICARE, MEDICAID ==
[~2018-06-13] MED LIST changes: +BARIUM SUSPENSION 2.1% (VANILLA SILQ) 450 ML PO ONE; -GEMCITABINE HCL (GENERIC) 1,000 MG, GEMCITABINE HCL (GENERIC) 700 MG in NS (IVPB) CANCE... IV SCH; +IOHEXOL 350 MG/ML 100 ML (OMNIPAQUE 350) VIAL IV ONE; +NS 100 ML (IVPB) BAG IV ONE; -NS IV 500 ML (CANCER CENTER) 500 ML IV SCH; -ONDANSETRON MDV (CANCER CENTER 16 MG, DEXAMETHASONE PF INJ (CANCER C 10 MG in NS (IVPB)... IV SCH; +RECEIVED CONTRAST (Hold Metformin) IV SCH
--- NOTE | 2018-06-13 11:41 | Diagnostic Imaging Report ---
PROCEDURE: CT chest with contrast, CT abdomen and pelvis with and without contrast. TECHNIQUE: Pre and post intravenous contrast axial imaging of the abdomen and pelvis and post contrast axial imaging of the chest were performed. INDICATION: Pancreatic cancer. Surveillance imaging. COMPARISON: CT chest, abdomen and pelvis from 02/07/2018. FINDINGS: CT CHEST: Thyroid is normal. Left port has tip terminating superior cavoatrial junction. No supraclavicular or axillary lymphadenopathy. No mediastinal, hilar or juxtaphrenic lymphadenopathy. Heart remains mildly enlarged without pericardial effusion. Coronary artery calcifications are unchanged. Normal caliber thoracic aorta. No pleural effusion or pneumothorax. Centrilobular emphysema is unchanged. Previously noted sub-solid nodules within the superior segment left lower lobe have resolved. There remain a few areas of clustered centrilobular micronodules in the left lower lobe indicative of a cellular bronchiolitis. No pulmonary mass or nodule that would suggest metastatic disease. No concerning focal osseous lesions. CT ABDOMEN AND PELVIS: Trace perihepatic ascites continues to decrease but persist. No free intraperitoneal air. Pneumobilia secondary to endoscopically placed common bile duct stent persist. No focal hepatic lesion to suggest metastasis. The gallbladder is decompressed. Spleen is normal. Diffuse atrophy of the pancreas with dilation of main pancreatic duct is unchanged. Pancreatic head mass is stable in size measuring 1.9 x 1.6 cm. No adrenal mass. Bilateral subcentimeter renal cysts are stable. No solid renal mass or obstructive uropathy. Mild wall thickening of the urinary bladder is likely due to partial bladder outlet obstruction. Prostate remains mildly enlarged. No pericolonic inflammatory changes. Stable partially calcified bilobed cyst in the right pericolic gutter but could represent a peritoneal inclusion cyst. No abdominal or pelvic lymphadenopathy. No concerning focal osseous lesions. IMPRESSION: CHEST: 1. No change in CT chest to indicate metastatic disease. 2. Resolution of infectious/inflammatory nodules in the superior segment of the left lower lobe. There do remain areas of cellular bronchiolitis within the left lower lobe that could be due to aspiration or infection. ABDOMEN AND PELVIS: 1. No change in CT abdomen pelvis to indicate worsening of disease. Pancreatic head mass is stable in size. 2. Improving but persistent trace hepatic ascites. Dictated by: Dictated on workstation # [id number]
== END ==
LOC: RAD 09:35
PROVIDERS: ATTEND Internal Medicine Hematology & Oncology
DX: C25.9 Malignant neoplasm of pancreas, unspecified (principal); J21.9 Acute bronchiolitis, unspecified; K76.89 Other specified diseases of liver
CPT/HCPCS: 71260; 74178

== ENCOUNTER 2018-07-12 08:45 | Outpatient (RCR) | payer MEDICARE, MEDICAID ==
[2018-04-14 10:24] LABS: BASOPHILS % (AUTO) 1 % (0-10); EOSINOPHILS # (AUTO) 0.2 10^3/uL (0.0-0.3); EOSINOPHILS % (AUTO) 4 % (0-10); HEMATOCRIT 30 % (40-54); HEMOGLOBIN 9.9 G/DL (13.3-17.7); LYMPHOCYTES # (AUTO) 1.5 X 10^3 (1.0-4.0); LYMPHOCYTES % (AUTO) 25 % (12-44); MEAN CORPUSCULAR HEMOGLOBIN 30 PG (25-34); MEAN CORPUSCULAR HGB CONC 33 G/DL (32-36); MEAN CORPUSCULAR VOLUME 93 FL (80-99); MEAN PLATELET VOLUME 10.1 FL (7.4-10.4); MONOCYTES # (AUTO) 1.2 X 10^3 (0.0-1.0); MONOCYTES % (AUTO) 21 % (0-12); NEUTROPHILS # (AUTO) 2.9 X 10^3 (1.8-7.8); NEUTROPHILS % (AUTO) 49 % (42-75); PLATELET COUNT 229 10^3/uL (130-400); RED BLOOD COUNT 3.28 10^6/uL (4.35-5.85); RED CELL DISTRIBUTION WIDTH 18.3 % (10.0-14.5); WHITE BLOOD COUNT 5.8 10^3/uL (4.3-11.0)
[2018-04-14 10:48] LABS: BUN/CREATININE RATIO 13; CALCIUM 8.6 MG/DL (8.5-10.1); CARBON DIOXIDE 26 MMOL/L (21-32); CHLORIDE 106 MMOL/L (98-107); CREATININE SERUM 1.04 MG/DL (0.60-1.30); GFR ESTIMATED > 60; GLUCOSE 178 MG/DL (70-105); SODIUM 141 MMOL/L (135-145)
[2018-04-28 10:39] LABS: BASOPHILS # (AUTO) 0.1 10^3/uL (0.0-0.1); BASOPHILS % (AUTO) 1 % (0-10); EOSINOPHILS # (AUTO) 0.5 10^3/uL (0.0-0.3); EOSINOPHILS % (AUTO) 9 % (0-10); HEMATOCRIT 31 % (40-54); HEMOGLOBIN 9.7 G/DL (13.3-17.7); LYMPHOCYTES # (AUTO) 1.2 X 10^3 (1.0-4.0); LYMPHOCYTES % (AUTO) 23 % (12-44); MEAN CORPUSCULAR HEMOGLOBIN 29 PG (25-34); MEAN CORPUSCULAR HGB CONC 32 G/DL (32-36); MEAN CORPUSCULAR VOLUME 92 FL (80-99); MEAN PLATELET VOLUME 10.5 FL (7.4-10.4); MONOCYTES # (AUTO) 1.2 X 10^3 (0.0-1.0); MONOCYTES % (AUTO) 23 % (0-12); NEUTROPHILS # (AUTO) 2.5 X 10^3 (1.8-7.8); NEUTROPHILS % (AUTO) 45 % (42-75); PLATELET COUNT 314 10^3/uL (130-400); RED BLOOD COUNT 3.33 10^6/uL (4.35-5.85); RED CELL DISTRIBUTION WIDTH 17.4 % (10.0-14.5); WHITE BLOOD COUNT 5.5 10^3/uL (4.3-11.0)
[2018-04-28 10:56] LABS: ALANINE AMINOTRANSFERASE 16 U/L (0-55); ALBUMIN 3.2 GM/DL (3.2-4.5); ALKALINE PHOSPHATASE 66 U/L (40-136); BILIRUBIN,TOTAL 0.3 MG/DL (0.1-1.0); BUN/CREATININE RATIO 17; CALCIUM 8.7 MG/DL (8.5-10.1); CARBON DIOXIDE 24 MMOL/L (21-32); CHLORIDE 106 MMOL/L (98-107); CREATININE SERUM 1.03 MG/DL (0.60-1.30); GFR ESTIMATED > 60; GLUCOSE 158 MG/DL (70-105); SODIUM 140 MMOL/L (135-145); TOTAL PROTEIN 6.2 GM/DL (6.4-8.2)
[2018-05-12 10:16] LABS: BASOPHILS % (AUTO) 1 % (0-10); EOSINOPHILS # (AUTO) 0.5 10^3/uL (0.0-0.3); EOSINOPHILS % (AUTO) 9 % (0-10); HEMATOCRIT 30 % (40-54); HEMOGLOBIN 9.6 G/DL (13.3-17.7); LYMPHOCYTES # (AUTO) 1.5 X 10^3 (1.0-4.0); LYMPHOCYTES % (AUTO) 29 % (12-44); MEAN CORPUSCULAR HEMOGLOBIN 29 PG (25-34); MEAN CORPUSCULAR HGB CONC 32 G/DL (32-36); MEAN CORPUSCULAR VOLUME 92 FL (80-99); MEAN PLATELET VOLUME 9.6 FL (7.4-10.4); MONOCYTES % (AUTO) 20 % (0-12); NEUTROPHILS # (AUTO) 2.2 X 10^3 (1.8-7.8); NEUTROPHILS % (AUTO) 42 % (42-75); PLATELET COUNT 314 10^3/uL (130-400); RED BLOOD COUNT 3.31 10^6/uL (4.35-5.85); WHITE BLOOD COUNT 5.2 10^3/uL (4.3-11.0)
[2018-05-12 10:37] LABS: BUN/CREATININE RATIO 13; CALCIUM 8.9 MG/DL (8.5-10.1); CARBON DIOXIDE 27 MMOL/L (21-32); CHLORIDE 103 MMOL/L (98-107); CREATININE SERUM 1.13 MG/DL (0.60-1.30); GFR ESTIMATED > 60; GLUCOSE 216 MG/DL (70-105); POTASSIUM 4.3 MMOL/L (3.6-5.0); SODIUM 139 MMOL/L (135-145)
[2018-05-26 10:33] LABS: BASOPHILS % (AUTO) 1 % (0-10); EOSINOPHILS # (AUTO) 0.3 10^3/uL (0.0-0.3); EOSINOPHILS % (AUTO) 6 % (0-10); HEMATOCRIT 30 % (40-54); HEMOGLOBIN 9.4 G/DL (13.3-17.7); LYMPHOCYTES # (AUTO) 1.5 X 10^3 (1.0-4.0); LYMPHOCYTES % (AUTO) 28 % (12-44); MEAN CORPUSCULAR HEMOGLOBIN 29 PG (25-34); MEAN CORPUSCULAR HGB CONC 32 G/DL (32-36); MEAN CORPUSCULAR VOLUME 91 FL (80-99); MONOCYTES # (AUTO) 0.9 X 10^3 (0.0-1.0); MONOCYTES % (AUTO) 16 % (0-12); NEUTROPHILS # (AUTO) 2.7 X 10^3 (1.8-7.8); NEUTROPHILS % (AUTO) 49 % (42-75); PLATELET COUNT 286 10^3/uL (130-400); RED BLOOD COUNT 3.27 10^6/uL (4.35-5.85); RED CELL DISTRIBUTION WIDTH 17.8 % (10.0-14.5); WHITE BLOOD COUNT 5.4 10^3/uL (4.3-11.0)
[2018-05-26 10:54] LABS: ALANINE AMINOTRANSFERASE 18 U/L (0-55); ALBUMIN 3.2 GM/DL (3.2-4.5); ALKALINE PHOSPHATASE 67 U/L (40-136); BILIRUBIN,TOTAL 0.4 MG/DL (0.1-1.0); BUN/CREATININE RATIO 13; CALCIUM 8.9 MG/DL (8.5-10.1); CARBON DIOXIDE 24 MMOL/L (21-32); CHLORIDE 106 MMOL/L (98-107); CREATININE SERUM 1.02 MG/DL (0.60-1.30); GFR ESTIMATED > 60; GLUCOSE 120 MG/DL (70-105); POTASSIUM 4.1 MMOL/L (3.6-5.0); SODIUM 141 MMOL/L (135-145); TOTAL PROTEIN 6.4 GM/DL (6.4-8.2)
[2018-06-09 11:18] LABS: BASOPHILS % (AUTO) 0 % (0-10); EOSINOPHILS % (AUTO) 0 % (0-10); HEMATOCRIT 26 % (40-54); HEMOGLOBIN 8.4 G/DL (13.3-17.7); LYMPHOCYTES # (AUTO) 0.6 X 10^3 (1.0-4.0); LYMPHOCYTES % (AUTO) 9 % (12-44); MEAN CORPUSCULAR HEMOGLOBIN 29 PG (25-34); MEAN CORPUSCULAR HGB CONC 32 G/DL (32-36); MEAN CORPUSCULAR VOLUME 89 FL (80-99); MEAN PLATELET VOLUME 10.4 FL (7.4-10.4); MONOCYTES # (AUTO) 0.9 X 10^3 (0.0-1.0); MONOCYTES % (AUTO) 13 % (0-12); NEUTROPHILS # (AUTO) 5.2 X 10^3 (1.8-7.8); NEUTROPHILS % (AUTO) 78 % (42-75); PLATELET COUNT 369 10^3/uL (130-400); RED CELL DISTRIBUTION WIDTH 16.9 % (10.0-14.5); WHITE BLOOD COUNT 6.7 10^3/uL (4.3-11.0)
[2018-06-09 11:44] LABS: CALCIUM 8.4 MG/DL (8.5-10.1); CREATININE SERUM 1.29 MG/DL (0.60-1.30); POTASSIUM 4.2 MMOL/L (3.6-5.0)
[2018-06-23 09:46] LABS: BASOPHILS % (AUTO) 1 % (0-10); EOSINOPHILS # (AUTO) 0.2 10^3/uL (0.0-0.3); EOSINOPHILS % (AUTO) 4 % (0-10); HEMATOCRIT 28 % (40-54); HEMOGLOBIN 8.6 G/DL (13.3-17.7); LYMPHOCYTES # (AUTO) 1.2 X 10^3 (1.0-4.0); LYMPHOCYTES % (AUTO) 26 % (12-44); MEAN CORPUSCULAR HEMOGLOBIN 28 PG (25-34); MEAN CORPUSCULAR HGB CONC 31 G/DL (32-36); MEAN CORPUSCULAR VOLUME 90 FL (80-99); MEAN PLATELET VOLUME 9.9 FL (7.4-10.4); MONOCYTES # (AUTO) 0.9 X 10^3 (0.0-1.0); MONOCYTES % (AUTO) 19 % (0-12); NEUTROPHILS # (AUTO) 2.4 X 10^3 (1.8-7.8); NEUTROPHILS % (AUTO) 51 % (42-75); PLATELET COUNT 173 10^3/uL (130-400); RED BLOOD COUNT 3.06 10^6/uL (4.35-5.85); RED CELL DISTRIBUTION WIDTH 18.5 % (10.0-14.5); WHITE BLOOD COUNT 4.7 10^3/uL (4.3-11.0)
[2018-06-23 10:03] LABS: ALANINE AMINOTRANSFERASE 28 U/L (0-55); ALBUMIN 2.9 GM/DL (3.2-4.5); ALKALINE PHOSPHATASE 76 U/L (40-136); BILIRUBIN,TOTAL 0.5 MG/DL (0.1-1.0); BUN/CREATININE RATIO 16; CALCIUM 7.7 MG/DL (8.5-10.1); CARBON DIOXIDE 24 MMOL/L (21-32); CHLORIDE 107 MMOL/L (98-107); CREATININE SERUM 0.95 MG/DL (0.60-1.30); GFR ESTIMATED > 60; GLUCOSE 158 MG/DL (70-105); POTASSIUM 3.7 MMOL/L (3.6-5.0); SODIUM 141 MMOL/L (135-145); TOTAL PROTEIN 5.7 GM/DL (6.4-8.2)
[~2018-07-12] VITALS: Ht 174 cm; Wt 65.3 kg
[~2018-07-12 08:45] MED LIST changes: -BARIUM SUSPENSION 2.1% (VANILLA SILQ) 450 ML PO ONE; +D5W 500 ML IV (CANCER CTR) 500 ML IV SCH; +D5W IV SCH; +FLUOROURACIL IV SCH; +GEMCITABINE HCL IV SCH; -IOHEXOL 350 MG/ML 100 ML (OMNIPAQUE 350) VIAL IV ONE; +IRINOTECAN LIPOSOMAL IV SCH; +LEUCOVORIN CALCIUM IV SCH; -NS 100 ML (IVPB) BAG IV ONE; +NS IV 500 ML (CANCER CENTER) 500 ML IV SCH; +NS IV SCH; +ONDANSETRON MDV (CANCER CENTER 16 MG, DEXAMETHASONE PF INJ (CANCER C 10 MG in NS (IVPB)... IV SCH; +PACLitaxel PROTEIN 150 MG in EMPTY IV BAG (PVC) CANCER CTR 1 EA IV SCH; +PALONOSETRON HCL 0.25 MG, DEXAMETHASONE INJECTION 10 MG in NS (IVPB) CANCER CENTER 50 ML IV SCH; -RECEIVED CONTRAST (Hold Metformin) IV SCH; +[UNRECOGNIZED DRUG - OTHER] IV SCH; +[UNRECOGNIZED DRUG - OTHER] IV SCH
[2018-07-12] MEDS ORDERED: NS IV 1000 ML (CANCER CTR) 0 ML ONE (10:13)
[2018-07-12] MEDS ORDERED: FOSAPREPITANT DIMEGLUMINE 150 MG in NS (IVPB) CANCER CENTER ONLY 150 ML IV SCH (10:30)
[2018-07-12] MEDS ORDERED: ATROPINE INJ 0.4 MG/ML SDV (CANCER CENTER) INJ SCH (10:30)
[2018-07-12 10:38] LABS: BASOPHILS % (AUTO) 1 % (0-10); EOSINOPHILS # (AUTO) 0.2 10^3/uL (0.0-0.3); EOSINOPHILS % (AUTO) 3 % (0-10); HEMATOCRIT 26 % (40-54); HEMOGLOBIN 7.9 G/DL (13.3-17.7); LYMPHOCYTES # (AUTO) 1.7 X 10^3 (1.0-4.0); LYMPHOCYTES % (AUTO) 27 % (12-44); MEAN CORPUSCULAR HEMOGLOBIN 27 PG (25-34); MEAN CORPUSCULAR HGB CONC 31 G/DL (32-36); MEAN CORPUSCULAR VOLUME 88 FL (80-99); MONOCYTES # (AUTO) 0.8 X 10^3 (0.0-1.0); MONOCYTES % (AUTO) 13 % (0-12); NEUTROPHILS # (AUTO) 3.5 X 10^3 (1.8-7.8); NEUTROPHILS % (AUTO) 57 % (42-75); PLATELET COUNT 267 10^3/uL (130-400); RED BLOOD COUNT 2.94 10^6/uL (4.35-5.85); RED CELL DISTRIBUTION WIDTH 18.1 % (10.0-14.5); WHITE BLOOD COUNT 6.1 10^3/uL (4.3-11.0)
[2018-07-12 10:55] LABS: ALANINE AMINOTRANSFERASE 12 U/L (0-55); ALBUMIN 2.9 GM/DL (3.2-4.5); ALKALINE PHOSPHATASE 75 U/L (40-136); BILIRUBIN,TOTAL 0.4 MG/DL (0.1-1.0); BUN/CREATININE RATIO 14; CALCIUM 8.2 MG/DL (8.5-10.1); CARBON DIOXIDE 25 MMOL/L (21-32); CHLORIDE 108 MMOL/L (98-107); GFR ESTIMATED > 60; GLUCOSE 146 MG/DL (70-105); POTASSIUM 3.2 MMOL/L (3.6-5.0); SODIUM 142 MMOL/L (135-145)
== END 2018-07-13 | disposition home or self-care (01) ==
LOC: ONC 08:45
PROVIDERS: ATTEND Internal Medicine Hematology & Oncology
DX: Z51.11 Encounter for antineoplastic chemotherapy (principal); C25.0 Malignant neoplasm of head of pancreas; D47.3 Essential (hemorrhagic) thrombocythemia; J43.9 Emphysema, unspecified; I73.9 Peripheral vascular disease, unspecified; Z87.891 Personal history of nicotine dependence; Z79.899 Other long term (current) drug therapy
CPT/HCPCS: 36591; 80048; 80053; 85025; 86301; 96367; 96375; 96413; 96415; 96416; 96417

== ENCOUNTER → 2018-07-20 | Outpatient (CLI) | payer MEDICARE, MEDICAID ==
[~2018-07-20] MED LIST changes: -D5W 500 ML IV (CANCER CTR) 500 ML IV SCH; -D5W IV SCH; -FLUOROURACIL IV SCH; -GEMCITABINE HCL IV SCH; -IRINOTECAN LIPOSOMAL IV SCH; -LEUCOVORIN CALCIUM IV SCH; -NS IV 500 ML (CANCER CENTER) 500 ML IV SCH; -NS IV SCH; -ONDANSETRON MDV (CANCER CENTER 16 MG, DEXAMETHASONE PF INJ (CANCER C 10 MG in NS (IVPB)... IV SCH; -PACLitaxel PROTEIN 150 MG in EMPTY IV BAG (PVC) CANCER CTR 1 EA IV SCH; -PALONOSETRON HCL 0.25 MG, DEXAMETHASONE INJECTION 10 MG in NS (IVPB) CANCER CENTER 50 ML IV SCH; -[UNRECOGNIZED DRUG - OTHER] IV SCH; -[UNRECOGNIZED DRUG - OTHER] IV SCH
--- NOTE | 2018-07-20 21:26 | Diagnostic Imaging Report ---
INDICATION: Urinary retention. Pancreatic cancer. TECHNIQUE: Multiple real-time pate scale sonographic images of the abdomen. CORRELATION STUDY: None FINDINGS: LIVER: Somewhat heterogeneous echotexture throughout the liver parenchyma. No definitive focal lesion. Liver size at 14.2 cm. GALLBLADDER: Abnormal appearance about the gallbladder which demonstrates significant gallbladder wall thickening approximately 6 mm in thickness. There is echogenic density surrounding and within the gallbladder. This is reportedly non-mobile. COMMON BILE DUCT: Not able to be definitively visualized. PANCREAS: Largely obscured. SPLEEN: Unremarkable. ABDOMINAL AORTA: Obscured proximally. Visualized portions appearing nonaneurysmal. INFERIOR VENA CAVA: Limited in visualization. RIGHT KIDNEY: 11.7 x 5.7 x 5.4 cm. Fairly sizable hypoechoic mass likely reflective of cyst of the inferior pole of right kidney. There does appear to be somewhat debris within portions of the cyst. This measures 10.6 x 8.2 x 5.0 cm. Right renal parenchyma otherwise unremarkable. No hydronephrosis. LEFT KIDNEY: 12.1 x 5.7 x 5.1 cm. Unremarkable. OTHER: There is presence of abdominal ascites, particularly perihepatic fluid. IMPRESSION: 1. Abnormal appearance about the gallbladder which appears to have rather significant gallbladder wall thickening with some echogenic densities, could be reflective of debris, tumefactive sludge or even perhaps some degree of wall calcification not excluded. Biliary tree not able to be visualized. If further assessment is desired, HIDA scan may be of additional benefit. 2. Large 10 cm right renal cyst appears to be somewhat complex with likely debris present. Dictated by: Dictated on workstation # [id number]
== END ==
LOC: RAD 15:09
PROVIDERS: ATTEND Internal Medicine Hematology & Oncology
DX: C25.9 Malignant neoplasm of pancreas, unspecified (principal); K82.8 Other specified diseases of gallbladder
CPT/HCPCS: 76700

== ENCOUNTER → 2018-08-15 | Outpatient (CLI) | payer MEDICARE, MEDICAID ==
[~2018-08-15] MED LIST changes: -ACHD5005 PO; -ALBU2.5V4 IH; -BUDE10.2 IH; +IOHEXOL 350 MG/ML 100 ML (OMNIPAQUE 350) VIAL IV ONE; -MULT-1056 PO; +NS 100 ML (IVPB) BAG IV ONE; +RECEIVED CONTRAST (Hold Metformin) IV SCH; -RT-ALBUINH IH
--- NOTE | 2018-08-15 14:24 | Diagnostic Imaging Report ---
PROCEDURE: CT chest with contrast, CT abdomen and pelvis with and without contrast. TECHNIQUE: Pre and post intravenous contrast axial imaging of the abdomen and pelvis and post contrast axial imaging of the chest were performed. INDICATION: Pancreatic carcinoma, followup. Correlation is made with a prior CT from 06/13/2018. CT CHEST: Left chest wall port remains with tip entering the upper right atrium. No axillary lymphadenopathy is identified. No mediastinal or hilar lymphadenopathy is detected. No pericardial or pleural fluid is identified. Central airways are patent. Centrilobular emphysematous changes are again seen. No parenchymal mass or infiltrate is identified. There is some chronic parenchymal changes in the medial left upper lobe which may represent some scarring. Bony structures are nonacute. IMPRESSION: Stable CT chest since exam from 06/13/2018. No thoracic lymphadenopathy or pulmonary metastatic disease is identified. CT ABDOMEN AND PELVIS: Trace perihepatic ascites is similar to prior exam. Pneumobilia is again seen within the liver secondary to common bile duct stent which remains in place. No discrete liver mass is identified. The gallbladder is unremarkable. Pancreatic body and tail remain atrophic with dilatation of the pancreatic duct. A low density mass in the region of pancreatic head appears to be fairly stable at 1.9 x 2.0 cm compared with approximately 1.7 x 1.9 cm. The spleen is unremarkable. No adrenal mass is detected. Subcentimeter low densities within the kidneys are again noted suggestive of cysts. The peripherally calcified bilobed cystic mass in the right paracolic gutter appears stable. Aorta is heavily calcified but nonaneurysmal. No central, retroperitoneal or mesenteric lymphadenopathy is detected. Both ureters are somewhat prominent. Bladder is diffusely trabeculated and thick walled. Prostate is enlarged. Findings may be owing to bladder outlet obstruction. There is a small amount of free fluid in the pelvis. No definite pelvic lymphadenopathy is identified. The bony structures are unremarkable. IMPRESSION: Overall stable CT of the abdomen and pelvis when compared with exam from 06/13/2018. No evidence of abdominal or pelvic metastatic disease is seen. Dictated by: Dictated on workstation # [id number]
== END ==
LOC: RAD 13:02
PROVIDERS: ATTEND Internal Medicine Hematology & Oncology
DX: C25.0 Malignant neoplasm of head of pancreas (principal); Z95.828 Presence of other vascular implants and grafts
CPT/HCPCS: 71260; 74178

== ENCOUNTER 2018-08-18 10:44 | Outpatient (RCR) | payer MEDICARE, MEDICAID ==
[2018-07-20 14:38] LABS: CALCIUM 7.7 MG/DL (8.5-10.1); CREATININE SERUM 6.17 MG/DL (0.60-1.30); POTASSIUM 4.5 MMOL/L (3.6-5.0)
[2018-07-25 13:15] LABS: BASOPHILS % (AUTO) 0 % (0-10); EOSINOPHILS # (AUTO) 0.2 10^3/uL (0.0-0.3); EOSINOPHILS % (AUTO) 5 % (0-10); HEMATOCRIT 27 % (40-54); HEMOGLOBIN 8.1 G/DL (13.3-17.7); LYMPHOCYTES # (AUTO) 1.2 X 10^3 (1.0-4.0); LYMPHOCYTES % (AUTO) 37 % (12-44); MEAN CORPUSCULAR HEMOGLOBIN 27 PG (25-34); MEAN CORPUSCULAR HGB CONC 31 G/DL (32-36); MEAN CORPUSCULAR VOLUME 87 FL (80-99); MEAN PLATELET VOLUME 10.6 FL (7.4-10.4); MONOCYTES # (AUTO) 0.2 X 10^3 (0.0-1.0); MONOCYTES % (AUTO) 8 % (0-12); NEUTROPHILS # (AUTO) 1.6 X 10^3 (1.8-7.8); NEUTROPHILS % (AUTO) 50 % (42-75); PLATELET COUNT 269 10^3/uL (130-400); RED CELL DISTRIBUTION WIDTH 18.5 % (10.0-14.5); WHITE BLOOD COUNT 3.2 10^3/uL (4.3-11.0)
[2018-07-25 13:35] LABS: ALANINE AMINOTRANSFERASE 14 U/L (0-55); ALBUMIN 2.7 GM/DL (3.2-4.5); ALKALINE PHOSPHATASE 71 U/L (40-136); BILIRUBIN,TOTAL 0.5 MG/DL (0.1-1.0); BUN/CREATININE RATIO 14; CALCIUM 7.9 MG/DL (8.5-10.1); CARBON DIOXIDE 27 MMOL/L (21-32); CHLORIDE 104 MMOL/L (98-107); CREATININE SERUM 0.84 MG/DL (0.60-1.30); GFR ESTIMATED > 60; GLUCOSE 142 MG/DL (70-105); POTASSIUM 3.8 MMOL/L (3.6-5.0); SODIUM 140 MMOL/L (135-145); TOTAL PROTEIN 5.4 GM/DL (6.4-8.2)
[2018-08-09 14:23] LABS: BASOPHILS % (AUTO) 0 % (0-10); EOSINOPHILS # (AUTO) 0.1 10^3/uL (0.0-0.3); EOSINOPHILS % (AUTO) 1 % (0-10); HEMATOCRIT 26 % (40-54); LYMPHOCYTES # (AUTO) 1.7 X 10^3 (1.0-4.0); LYMPHOCYTES % (AUTO) 26 % (12-44); MEAN CORPUSCULAR HEMOGLOBIN 25 PG (25-34); MEAN CORPUSCULAR HGB CONC 30 G/DL (32-36); MEAN CORPUSCULAR VOLUME 83 FL (80-99); MEAN PLATELET VOLUME 9.8 FL (7.4-10.4); MONOCYTES % (AUTO) 15 % (0-12); NEUTROPHILS # (AUTO) 3.9 X 10^3 (1.8-7.8); NEUTROPHILS % (AUTO) 58 % (42-75); PLATELET COUNT 428 10^3/uL (130-400); RED CELL DISTRIBUTION WIDTH 18.2 % (10.0-14.5); WHITE BLOOD COUNT 6.7 10^3/uL (4.3-11.0)
[2018-08-09 14:43] LABS: ALBUMIN 2.6 GM/DL (3.2-4.5); BILIRUBIN,TOTAL 0.5 MG/DL (0.1-1.0); CALCIUM 7.9 MG/DL (8.5-10.1); CREATININE SERUM 1.33 MG/DL (0.60-1.30); POTASSIUM 3.6 MMOL/L (3.6-5.0); TOTAL PROTEIN 5.7 GM/DL (6.4-8.2)
[~2018-08-18 10:44] MED LIST changes: +ACHD5005 PO; +ALBU2.5V4 IH; +BUDE10.2 IH; -IOHEXOL 350 MG/ML 100 ML (OMNIPAQUE 350) VIAL IV ONE; +MULT-1056 PO; -NS 100 ML (IVPB) BAG IV ONE; -RECEIVED CONTRAST (Hold Metformin) IV SCH; +RT-ALBUINH IH
== END 2018-10-18 | disposition home or self-care (01) ==
LOC: ONC 10:44
PROVIDERS: ATTEND Internal Medicine Hematology & Oncology
DX: C25.0 Malignant neoplasm of head of pancreas (principal); D47.3 Essential (hemorrhagic) thrombocythemia; J43.9 Emphysema, unspecified; I73.9 Peripheral vascular disease, unspecified; Z87.891 Personal history of nicotine dependence; Z79.899 Other long term (current) drug therapy
CPT/HCPCS: 36415; 36591; 80048; 80053; 85025; 99213